=== PATIENT | male | born 1935 | race African-American/Black ===

== ENCOUNTER 2016-05-28 01:47 | Inpatient (IN) | payer MEDICARE ==
[~2016-05-28] VITALS: Ht 177.8 cm; Wt 58.6 kg
[~2016-05-28 01:47] MED LIST: ACETAMINOPHEN325 MG PO; ADVAIR HFA [SP]12 GM INH; ALLEGRA 60 MG T60 MG PO; ARICEPT5 MG PO; ARTIFICIAL TEAR15 ML EACH EYE; ASPIRIN81 MG PO; ATARAX 25 MG TA25 MG PO; ATIVAN0.5 MG PO; ATROVENT 0.02%2.5 ML UPD; BACTROBAN NASAL1 GM NASAL; BACTROBAN NASAL1 GM NS; BAYER CHEWABLE81 MG PO; BUPRENORPHI0.3 MG/ML IM; CARAFATE1 G PO; CILOXAN5 ML EACH EYE; CLARITIN 10 MG10 MG PO; COLACE100 MG PO; COUMADIN2.5 MG PO; COUMADIN5 MG PO; COUMADIN7.5 MG PO; DULCOLAX5 MG PO; FOLIC ACID1 MG PO; HEPARIN SOD5000 U/ML IV; HYDRALAZINE HCL25 MG PO; IMDUR30 MG PO; ISOSORBIDE MONO30 M1 PO; LEVAQUIN250 MG PO; LEVAQUIN500 MG PO; LIPITOR10 MG; LIPITOR10 MG PO; LIPITOR20 MG PO; LISINOPRIL10 MG PO; MEGACE40 MG NG; MEGACE40 MG PO; MIRALAX17 GM PO; NEPHRO-VITE RX1 TAB PO; NITROQUICK0.4 MG SL; NITROSTAT0.3 MG SL; NITROSTAT0.4 MG SL; NORCO 5/325 TAB1 TA1 PO; NORCO 7.5/325 T1 TA1 PO; NORVASC10 MG PO; NYSTATIN ORAL SU5 ML PO; OMEPRAZOLE20 M1 PO; PEPCID AC20 MG PO; PEPCID20 MG PO; PERCOCET 10/3251 TA1 PO; PERCOCET 5-3251 TAB PO; PHENERGAN25 MG/ML IV; PHOSLO667 MG PO; PLAVIX75 MG PO; PREMARIN0.3 MG PO; PROTONIX40 MG PO; REMERON15 MG PO; RENA-VITE TABL0.8 MG PO; RESTORIL15 MG PO; ROCALTROL0.25 MCG PO; SENNA PLUS TA1 UDTAB PO; SODIUM BICARBO650 MG PO; SODIUM CL 0.91000 ML IVPB; SORBITOL4000 ML PO; SYMBICORT 16010.2 GM INH; SYNTHROID75 MCG PO; TOPROL XL100 MG PO; TOPROL XL50 MG PO; ULTRAM50 MG PO; VANCOMYCIN H1 G/VIA1 IV; VIBRAMYCIN50 MG PO; VISINE15 ML EACH EYE; ZESTRIL20 MG PO; ZOFRAN4 MG PO; ZOLOFT50 MG PO; [UNRECOGNIZED DRUG - OTHER] IV
[2016-05-28 02:22] LABS: BASOPHILS 0.1 % (0.0-2.0); HEMATOCRIT 35.1 % (42.0-54.0); HEMOGLOBIN 11.3 g/dL (13.5-17.5); IMMATURE GRANULOCYTES 0.3 % (0-5); LYMPHOCYTES 12.6 % (15-50); MCH 30.7 pg (26.0-34.0); MCHC 32.2 g/dL (31.0-37.0); MCV 95.4 fL (80.0-100.0); MEAN PLATELET VOLUME 11.2 fL (7.4-10.4); MONOCYTES 12.4 % (2-11); NEUTROPHILS 71.6 % (40-80); RBC 3.68 10x6/uL (4.20-6.10); RDW 14.1 % (11.5-14.5); WBC 7.3 10x3/uL (4.8-10.8)
[2016-05-28 02:23] LABS: PLATELET COUNT 234 10x3/uL (130-400)
[2016-05-28 02:25] LABS: ALBUMIN 3.8 g/dL (3.4-5.0); ALKALINE PHOSPHATASE 76 U/L (46-116); ALT (SGPT) 14 U/L (10-68); BILIRUBIN - TOTAL 0.39 mg/dL (0.2-1.3); CALC OSMOLALITY 288 mosm/kg (275-300); CALCIUM 8.9 mg/dL (8.5-10.1); CARBON DIOXIDE 27.8 mmol/L (21.0-32.0); CHLORIDE - SERUM 101 mmol/L (98-107); CREATININE - SERUM 8.5 mg/dL (0.6-1.3); GLUCOSE 102 mg/dL (74-106); POTASSIUM - SERUM 5.6 mmol/L (3.5-5.1); PROTEIN - SERUM 8.8 g/dL (6.4-8.2); SODIUM 139 mmol/L (136-145); UREA NITROGEN 42 mg/dL (7-18); eGFR NON AFRICAN AMERICAN 6 mL/min (90-120)
[2016-05-28 02:37] LABS: CHOLESTEROL, TOTAL 172 mg/dL (0-200); CKMB 1.5 U/L (0.0-3.6); CREATINE KINASE 49 UL (21-232); HDL CHOLESTEROL 58 mg/dL (32-96); LDL CHOLESTEROL 92 mg/dL (0-100); LDL-HDL RATIO 1.6 ratio (1.5-3.5); TRIGLYCERIDE 113 mg/dL (30-200); TROPONIN-I 0.035 ng/mL (0.000-0.060)
[2016-05-28 05:04] LABS: CKMB 2.5 U/L (0.0-3.6); CREATINE KINASE 233 UL (21-232)
--- NOTE | 2016-05-28 05:19 | NUR ---
RECEIVED TO ROOM 2864 ALERT AND ORIENTED X 3. FROM ER VIA STRETCHER, ASSIST TO BED WITH HELP OF THREE. GUALBERTO WELL. HOB UP SR UP X2, C/L IN REACH. CONTINUE TO MONITOR.
--- NOTE | 2016-05-28 07:25 | NUR ---
PT SITTING UP IN BED SLEEPING NO S/S DISTRESS WILL CONT TO MONITOR
[2016-05-28 08:13] VITALS: BP 152/62
[2016-05-28] MEDS ORDERED: COMBIVENT RESPIM4 GM INH (09:36)
--- NOTE | 2016-05-28 09:37 | NUR ---
DR FLANNERY PUT IN ORDER TO CONT [place] MEDS AT [place]. ORDERED. PT WILL HAVE DIALYSIS TODAY HOLDING BP MEDS FOR NOW. PT IS A FULL CODE. TELE ON PT SR 70 BPM. LABS ORDERED FOR TOMORROW AM PT REQUESTING HIS INHALER HE TAKES AT HOME. IS HOME MED, REORDERED AND CALLED PHARM TO BRING IT UP.
[2016-05-28 09:58] VITALS: BMI 20.9
[2016-05-28 12:04] VITALS: BP 158/59
--- NOTE | 2016-05-28 12:29 | NUR ---
PT SITTING UP IN BED WATCHING TV. DENIES NEEDS WILL CONT TO MONITOR.
[2016-05-28 12:39] LABS: CKMB 1.1 U/L (0.0-3.6); CREATINE KINASE 36 UL (21-232); TROPONIN-I 0.032 ng/mL (0.000-0.060)
[2016-05-28 14:09] VITALS: Ht 177.8 cm; Wt 58.6 kg
--- NOTE | 2016-05-28 18:04 | NUR ---
PT DOWN IN DIALYSIS
[2016-05-28 20:00] VITALS: BP 234/90
--- NOTE | 2016-05-28 21:01 | NUR ---
PT RECEIVED BACK FROM DIALYSIS.
--- NOTE | 2016-05-28 21:57 | NUR ---
PT AWAKE, ALERT, ORIENTED, STATES HE DID FINE WITH DIALYSIS THIS EVENING. PT DENIES ANY ACUTE NEEDS. CONTINUE TO MONITOR CLOSELY. BED LOW, CALL LIGHT IN REACH, SIDE RAILS X 2, HOB 20 DEGREES.
--- NOTE | 2016-05-28 23:52 | NUR ---
PT READY FOR SLEEP AT THIS TIME. DENIES ANY ACUTE NEEDS. PT STATES HIS GENERALIZED PAIN HAS IMPROVED WITH THE PRN TRAMADOL AND TYLENOL. CONTINUE TO MONITOR CLOSELY. BED LOW, CALL LIGHT IN REACH, SIDE RAILS X 2, HOB 10 DEGREES.
--- NOTE | 2016-05-29 00:56 | NUR ---
PT LYING IN BED, EYES CLOSED, RESPIRATIONS EVEN AND UNLABORED. PT EASILY ROUSABLE TO VERBAL STIMULI. PT DENIES ANY NEEDS. CONTINUE TO MONITOR CLOSELY. BED LOW, CALL LIGHT IN REACH, SIDE RAILS X 2, HOB 10 DEGREES.
[2016-05-29 04:15] VITALS: BP 110/49; BP 168/62
[2016-05-29 05:53] LABS: BASOPHILS 0.3 % (0.0-2.0); EOSINOPHILS 3.6 % (0-7); HEMATOCRIT 31.7 % (42.0-54.0); HEMOGLOBIN 9.9 g/dL (13.5-17.5); IMMATURE GRANULOCYTES 0.3 % (0-5); LYMPHOCYTES 14.2 % (15-50); MCH 29.8 pg (26.0-34.0); MCHC 31.2 g/dL (31.0-37.0); MCV 95.5 fL (80.0-100.0); MEAN PLATELET VOLUME 10.9 fL (7.4-10.4); NEUTROPHILS 67.6 % (40-80); PLATELET COUNT 216 10x3/uL (130-400); RBC 3.32 10x6/uL (4.20-6.10); RDW 13.9 % (11.5-14.5); WBC 5.8 10x3/uL (4.8-10.8)
[2016-05-29 06:38] LABS: CALCIUM 8.2 mg/dL (8.5-10.1); CARBON DIOXIDE 29.3 mmol/L (21.0-32.0); CHLORIDE - SERUM 99 mmol/L (98-107); CKMB 1.3 U/L (0.0-3.6); CREATINE KINASE 37 UL (21-232); CREATININE - SERUM 7.1 mg/dL (0.6-1.3); GLUCOSE 77 mg/dL (74-106); PHOSPHOROUS 4.3 mg/dL (2.5-4.9); SODIUM 136 mmol/L (136-145); eGFR NON AFRICAN AMERICAN 8 mL/min (90-120)
[2016-05-29 06:41] LABS: CALC OSMOLALITY 276 mosm/kg (275-300); POTASSIUM - SERUM 4.6 mmol/L (3.5-5.1); UREA NITROGEN 30 mg/dL (7-18)
--- NOTE | 2016-05-29 07:15 | NUR ---
RECEIVED REPORT. ASSUMED CARE OF PATIENT. CALL LIGHT WITHIN REACH. RESTING WITH EYES CLOSED. RESP EVEN AND UNLABORD. NO DISTRESS.
[2016-05-29 08:27] VITALS: BP 157/72
--- NOTE | 2016-05-29 11:00 | NUR ---
PATIENT RESTING IN BED. DENIES NEEDS. DAUGHTER AT BEDSIDE. CALL LIGHT WITHIN REACH. NO DISTRESS.
[2016-05-29 12:02] VITALS: BP 124/64
--- NOTE | 2016-05-29 13:31 | NUR ---
RESTING IN BED WITH EYES OPEN. CALL LIGHT WITHIN REACH. DENIES NEEDS AT THIS TIME. NO DISTRESS.
--- NOTE | 2016-05-29 14:38 | NUR ---
PATIENT PATHWAYS: [facility] @ 6am. [facility] recs uploaded and forwarded to the OPHD unit. BMM Dialysis Coordinator.
--- NOTE | 2016-05-29 16:13 | NUR ---
MEDICATED FOR ANXIETY AT THIS TIME. NO DISTRESS.
[2016-05-29 16:15] LABS: SPE - A/G RATIO 0.9 (0.7-1.7); SPE - ALPHA-1 GLOBULIN 0.3 g/dL (0.0-0.4); SPE - ALPHA-2 GLOBULIN 0.7 g/dL (0.4-1.0); SPE - GAMMA GLOBULIN 2.3 g/dL (0.4-1.8); SPE - M-SPIKE 1.5 g/dL (Not Observed); SPE - TOTAL PROTEIN 8.3 g/dL (6.0-8.5)
[2016-05-29 16:38] VITALS: BP 148/59
--- NOTE | 2016-05-29 19:54 | NUR ---
PT LYING IN BED, COVERS PULLED OVER HIS HEAD RESTING. PT IS EASILY ROUSABLE TO VERBAL STIMULI. DENIES ANY NEEDS. WILL CONTINUE TO MONITOR CLOSELY.
[2016-05-29 21:06] VITALS: BP 162/61
[2016-05-30 01:50] VITALS: BP 150/61
[2016-05-30 05:40] VITALS: BP 132/60
[2016-05-30 06:25] LABS: ANION GAP 12.6 mmol/L (8-16); CALCIUM 8.6 mg/dL (8.5-10.1); CARBON DIOXIDE 29.2 mmol/L (21.0-32.0)
[2016-05-30 06:29] LABS: CREATININE - SERUM 9.3 mg/dL (0.6-1.3); POTASSIUM - SERUM 5.8 mmol/L (3.5-5.1)
[2016-05-30 08:03] VITALS: BP 168/63
--- NOTE | 2016-05-30 10:40 | NUR ---
PT IS ALERT. ASSESSMENT DONE PER FLOWSHEET. NO OTHER NEEDS AT THIS TIME. WILL CONTINUE TO MONTIOR.
--- NOTE | 2016-05-30 11:26 | NUR ---
PT IS ALERT. NO SS OF DISTRESS. PT IN HD AT THIS TIME. CALLED [facility]IR TO GIVE REPORT. PT IS STABLE AT THIS TIME.
[2016-05-30 16:00] VITALS: BP 193/71
--- NOTE | 2016-05-30 20:09 | NUR ---
HS MEDS GIVEN, ULTRAM 1 TAB GIVEN FOR C/O PAIN TO BACK. BED LOW, CL IN REACH, WILL CONT TO MONITOR.
[2016-05-30 22:07] VITALS: BP 157/62
--- NOTE | 2016-05-30 23:38 | NUR ---
RESTING WITH EYES CLOSED, RESPERATIONS EVEN, NO S/S DISTRESS NOTED.
[2016-05-31 01:57] VITALS: BP 139/59
[2016-05-31 05:26] VITALS: BP 140/62
--- NOTE | 2016-05-31 06:28 | NUR ---
NO CHANGES FROM PREVIOUS ASSESSMENT, CALL LIGHT IN REACH. WILL CONTINUE TO WITH PLAN OF CARE.
[2016-05-31 06:42] LABS: ANION GAP 13.7 mmol/L (8-16); CALCIUM 8.5 mg/dL (8.5-10.1); CARBON DIOXIDE 30.3 mmol/L (21.0-32.0); CREATININE - SERUM 8.1 mg/dL (0.6-1.3); PHOSPHOROUS 4.3 mg/dL (2.5-4.9)
--- NOTE | 2016-05-31 07:30 | NUR ---
PT IS ALERT. WILL CONTINUE PLAN OF CARE. NO OTHER NEEDS AT THIS TIME. WILL CONTINUE TO [facility].
--- NOTE | 2016-05-31 07:30 | NUR ---
PT IS ALERT. RECEIVED PT REPORT. NO OTHER NEEDS AT THIS TIME. WILL CONTINUE PLAN OF CARE
[2016-05-31 08:19] VITALS: BP 151/64
--- NOTE | 2016-05-31 11:30 | NUR ---
Patient Name: BRITTON HEATH Admission Status: ER Accout number: [id number] Admission Date: 05-29-2016 : 1935 Admission Diagnosis: Attending: ALLEN Current LOS: 2 Anticipated DC Date: 06-01-2016 Planned Disposition: Nursing Facility [facility] Cert Primary Insurance: MEDICARE A & B PLANNED EXTERNAL PROVIDER: [facility], LONG TERM CARE MEDICAID BED Discharge Planning Comments: * Is the patient Alert and Oriented? Yes 0 * How many steps to enter\exit or inside your home? NONE 0 * PCP DR. COULTER 0 * Pharmacy [facility] 0 * Preadmission Environment [facility] 0 * Facility Name [facility] 0 * ADLs Partial Dependent 0 * Partial ADLs (Assistance needed) Bathing Medication Management 0 * Equipment Other 0 * Other Equipment ALL MEDICAL EQUIPMENT PROVIDED BY FACILITY 0 * List name and contact numbers for known caregivers / representatives who currently or will assist patient after discharge: UNIQUE HEATH, SON, 0 * Community resources currently utilized Other 0 * Please name any agencies selected above. OUTPATIENT DIALYSIS, [facility], M/W/F, 0645AM 0 * Additional services required to return to the preadmission environment? No 0 * Can the patient safely return to the preadmission environment? Yes 0 * Has this patient been hospitalized within the prior 30 days at any hospital? No 0 CM RECEIVED DISCHARGE PLANNING ORDER, MET WITH PT IN ROOM TO DISCUSS DISCHARGE PLANNING FOR TOMORROW AND NEEDS. PT REPORTS LIVING AT [facility] IN [place]. PT REPORTS HAVING ASSISTANCE OF STAFF THERE NEEDED. PT REPORTS HAVING ALL NEEDED MEDICAL EQUIPMENT. PT REPORTS HE WILL BE RETURNING TO THE [facility] WHERE HE LIVES, THE FACILITY [facility] TRANSPORTS HIM TO AND FROM DIALYSIS. PT WOULD LIKE CM TO CALL HIS SON UNIQUE TOMORROW, WHEN HE GOES HOME TO [facility]. CM FAXED [facility] FOR [facility], AN UPDATE TO [phone]. FOR DISCHARGE, NOTIFY PT'S SON, UNIQUE, . FAX DISCHARGE INFORMATION TO [facility] AT [phone]; NURSE REPORT TO BE CALLED TO [facility] AT [phone]. [facility] TO ARRANGE VAN TRANSPORTATION. Serologist: Oswaldo Chong
--- NOTE | 2016-05-31 12:00 | NUR ---
PT IS ALERT. ASSESSMENT DONE PER FLOWSHEET. NO OTHER NEEDS AT THIS TIME. WILL CONTINUE TO MONITOR.
[2016-05-31 12:20] VITALS: BP 137/54
--- NOTE | 2016-05-31 12:38 | NUR ---
Nutrition Follow Up: Pt reported that his appetite is okay. He said that he eats more at some meals than others. Noted pt to d/c tomorrow after HD. Pt is eating 25% meal avg on a Renal diet. Wt loss 17# since admit. +BM 05/30/16. Labs noted - BUN, Cr elevated. Meds noted. Pt with poor po intake. Rec continue current diet. Will continue to send selective menus and honor food preferences within diet ordered. RD following.
--- NOTE | 2016-05-31 15:38 | NUR ---
PT IS ALERT. NO SS OF DISTRES AT THIS TIME. WILL CONTINUE TO MONITOR.
[2016-05-31 16:17] VITALS: BP 140/66
--- NOTE | 2016-05-31 19:35 | NUR ---
RESUMED CARE OF PT, SLEEPING, RSUSANNAH-ADELA, MEEF,[id number], BED IS LOW, SRX2, CALL LIGHT IN REACH, WILL CONTINUE TO MONITOR
[2016-05-31 20:00] VITALS: BP 163/64
[2016-06-01] VITALS: BP 164/71
--- NOTE | 2016-06-01 03:37 | NUR ---
ESCROW ASSISTANT AT BEDSIDE TO OBTAIN VITALS, CALL LIGHT IN REACH. WILL CONTINUE WITH PLAN OF CARE.
[2016-06-01 04:00] VITALS: BP 169/70
--- NOTE | 2016-06-01 05:25 | NUR ---
PT SLEEPING, CALL LIGHT IN REACH, BED IS LOW, SRX2, WILL CONTINUE TO MONITOR
[2016-06-01 06:05] LABS: BASOPHILS 0.2 % (0.0-2.0); EOSINOPHILS 2.7 % (0-7); IMMATURE GRANULOCYTES 0.3 % (0-5); LYMPHOCYTES 15.6 % (15-50); MCH 30.5 pg (26.0-34.0); MCHC 32.4 g/dL (31.0-37.0); MCV 94.2 fL (80.0-100.0); MEAN PLATELET VOLUME 11.4 fL (7.4-10.4); MONOCYTES 13.2 % (2-11); PLATELET COUNT 223 10x3/uL (130-400); RBC 3.61 10x6/uL (4.20-6.10); RDW 13.7 % (11.5-14.5); WBC 6.6 10x3/uL (4.8-10.8)
[2016-06-01 07:13] LABS: ANION GAP 14.5 mmol/L (8-16); CALCIUM 8.4 mg/dL (8.5-10.1); CARBON DIOXIDE 27.5 mmol/L (21.0-32.0); PHOSPHOROUS 4.2 mg/dL (2.5-4.9)
[2016-06-01 07:15] LABS: CREATININE - SERUM 10.6 mg/dL (0.6-1.3)
--- NOTE | 2016-06-01 07:58 | NUR ---
AM ROUNDING DONE WITH NIGHT NURSE. PATIENT IS SLEEPING, RIGHT HAND SEEN WITH SALINE LOCK. RESEV. LEFT ARM WITH AVF. ON HEART MONITOR SHOWING SR, HR 64. BED ALARM IS ON. FOR DIALYSIS TODAY.
--- NOTE | 2016-06-01 09:17 | NUR ---
0901-TO DIALYSIS VIA WHEELCHAIR.
[2016-06-01 09:52] VITALS: BP 168/67
--- NOTE | 2016-06-01 10:52 | NUR ---
PATIENT PATHWAYS: [facility] Sat/Sat/Sat @ 6:00am. Med recs forwarded to unit. BMM Dialysis Coordinator.
[2016-06-01] MEDS ORDERED: Levaquin PO (11:28)
[2016-06-01] MEDS ORDERED: ISOSORBIDE DINI10 MG PO (11:29)
[2016-06-01] MEDS ORDERED: HYDRALAZINE HCL50 MG PO (11:29)
[2016-06-01] MEDS ORDERED: RENVELA0.8 GM PO (11:41)
[2016-06-01] MEDS ORDERED: FLORAJEN3 CAPS460 MG PO (11:41)
--- NOTE | 2016-06-01 12:52 | NUR ---
Patient Name: BRITTON HEATH Encounter No: [id number] : 1935 Primary Insurance: MEDICARE A & B Anticipated DC Date: 06-01-2016 Planned Disposition: Nursing Facility [facility] Cert External Planned Provider: [facility] LONG TERM CARE MEDICAID BED DCP follow-up note: CM RECEIVED DISCHARGE ORDER, CALLED AND NOTIFIED PT'S SON, UNIQUE, . CM FAXED DISCHARGE INFORMATION TO [facility] AT [phone]. NURSE REPORT TO BE CALLED TO [facility] AT [phone]. [facility] TO ARRANGE VAN TRANSPORTATION FOR AFTER 2PM TODAY. Inspector Packer Glass Container: Oswaldo Chong
--- NOTE | 2016-06-01 12:54 | NUR ---
RETURNS FROM DIALYSIS, RATES "ALL OVER PAIN" 01/01. ULTRAM GIVEN ORDERED.
--- NOTE | 2016-06-01 14:47 | NUR ---
CALL PLACED TO JESSICA HORTA APN WITH RE[facility] TO SEE HOW MANY DAYS OF LEVAQUIN NEEDS TO BE GIVEN. AWAITING CALL BACK.
--- NOTE | 2016-06-01 14:51 | NUR ---
STILL AWAITING CALL BACK FROM JESSICA HORTA APN. PAGED AGAIN.
--- NOTE | 2016-06-01 14:59 | NUR ---
JESSICA HORTA APN TO CALL BACK AND STATE THAT HE NEEDS 5 DAYS OF LEVAWUIN.
--- NOTE | 2016-06-01 15:03 | NUR ---
REPORT CALLED TO JESSA CADET AT [facility].
--- NOTE | 2016-06-01 17:05 | NUR ---
SALINE LOCK REMOVED WITH CATH TIP INTACT. VERBAL AND WRITTEN DISCHARGE INSTRUCTIONS GIVEN TO PATIENT. DISCHARGED TO [facility] VIA WHEELCHAIR.
[2016-06-01 21:07] LABS: IMMUNOFIXATION Note: (()); IMMUNOGLOBULIN A 100 mg/dL (61-437); IMMUNOGLOBULIN G 2106 mg/dL (700-1600); IMMUNOGLOBULIN M 31 mg/dL (15-143)
--- NOTE | 2016-06-04 06:34 | DS ---
PATIENT:BRITTON HEATH :[birth year] MEDICAL RECORD: [id number] DISCHARGE SUMMARY ADMISSION DATE: 05/29/16 DISCHARGE DATE: 06/01/16 HISTORY OF PRESENT ILLNESS: Mr. Heath is a 80-year-old black male with end-stage renal disease, admitted from the [place] [facility] with shortness of breath and pleuritic chest pain, found to have pneumonia in the [place] [facility] and transferred for antibiotic therapy. HOSPITAL COURSE: The patient received IV followed by oral Levaquin therapy and did well with this. He was dialyzed down the past ____ and had no further his pleuritic chest pain. There was no change in his cardiac enzymes or telemetry strips. He was back to baseline at the time of discharge and tolerating oral medications well. He underwent acute dialysis without difficulty and will be transferred back to the [place] [facility] in [place]. DISCHARGE DIAGNOSES: 1. Pneumonia. 2. Noncardiac chest pain. 3. End-stage renal disease. 4. Dementia. 5. Chronic obstructive pulmonary disease. 6. Chronic anemia. PLAN: The patient will be dialyzed today and then transferred back to the [place] [facility]. He will resume his outpatient dialysis on Saturday in [place]. He will resume his renal diet, ambulation as tolerated. DISCHARGE MEDICATIONS: Will be Levaquin 250 daily for a total of 5 days. He will resume Epogen in the dialysis unit, Zestril 20 b.i.d., hydralazine 50 b.i.d., isosorbide 20 mg daily, Synthroid 75 mcg daily, Protonix 40 mg daily, Zoloft 25 q.48. He will resume his p.r.n. medications laxatives, etc., metoprolol 50 t.i.d. His Premarin 0.3 daily for his chronic AV ____, GI bleeding, amlodipine 10 mg h.s., atorvastatin 20 h.s. and his Aricept 5 mg h.s. and his Renvela 800 t.i.d., baby aspirin 1 daily, Nephro-Felecia 1 daily. TRANSINT:[id number] Voice Confirmation ID: [id number] DOCUMENT ID: [id number] TYE FLANNERY MD at 0634 CC: [id number] DICTATION DATE: 06/01/16803 SUSTAINABILITY OFFICER: 06/01/162299 DIS IN 06/01/16 [facility] [address] [facility] [place], [facility]
--- NOTE | 2016-06-12 08:17 | EC ---
PATIENT:BRITTON HEATH DATE OF SERVICE: 05/28/16 SEX: M MEDICAL RECORD: [id number] DATE OF : [birth year] LOCATION:D.M2 D.213 AGE OF PATIENT: 80 ADMISSION DATE: 05/29/16 REFERRING PHYSICIAN: INTERPRETING PHYSICIAN: JOSE MAHARAJ M.D. ECHOCARDIOGRAM REPORT ECHO CHARGES 4 ECHO COMPLETE CLINICAL DIAGNOSIS: SOB ECHOCARDIOGRAPHIC MEASUREMENTS (adult normal given) AC root (d.<3.7cm) 3.0 LV Septum d (<1.2 cm> 1.3 Valve Excursion 1.5 LV Septum (systole) 1.8 Left Atria (s.<4.0cm> 3.5 LVPW d(<1.2cm) 1.3 RV (d.<2.3cm) 2.7 LVPW (sytole) 2.1 LV diastole(<5.6CM) 6.1 MV E-F(>70mm/sec) LV systole 3.9 LVOT Diameter 1.7 MV exc.(>10mm) Est.ejection fraction (50-75%) Pericardial Effusion N DOPPLER: LVIT A 74.0 E 146 LA RVSP 70.3 LVOT 114 AOP1/2T Asc. Ao 169 RVOT 51.0 RA PA 81.0 AV Gradient Peak 12.0 AV Mean 5.6 AV Area 1.3 MV Gradient Peak 9.3 MV Mean 2.4 MV Area COMMENTS: Knot Bumper: Sanjana SHINOE Roller Engraver:Joce Maharaj TAPE# PACS DATE OF SERVICE: 05/28/2016 REFERRING PHYSICIAN: Cliff Porter MD. INDICATION: Dyspnea. DESCRIPTION: Left ventricle is mildly dilated. Left ventricular hypertrophy is present. No wall motion abnormalities are noted. Estimated ejection fraction is 55%. Mitral valve appears structurally normal. There is mild regurgitation seen. Left atrium is normal in size. The aortic valve leaflets are thickened. ECHOCARDIOGRAM REPORT [id number] BRITTON HEATH There is mild insufficiency seen, but no evidence of stenosis. Right ventricle is mildly dilated. Tricuspid valve is structurally normal. There is mild regurgitation seen. Right ventricular systolic pressure is elevated 70 mmHg. There is no pericardial effusion seen. There appears to be a small ASD seen by color flow Doppler. There appears to be [id number]-qr-[id number] shunting. IMPRESSION: 1. Mildly dilated left ventricle with preserved ejection fraction of 55%. 2. Mild mitral regurgitation. 3. Mild aortic insufficiency. 4. Mild tricuspid regurgitation with elevated pulmonary pressure. 5. Small atrial septal defect is seen by color flow Doppler. TRANSINT:[id number] Voice Confirmation ID: [id number] DOCUMENT ID: [id number] JOSE MAHARAJ M.D. at 0817 CC: [id number] DICTATION DATE: 05/29/16 0745 HEDDLER TIER: 05/29/16 0819 DIS IN 06/01/16 [address] [id number] [place] [address]
== END 2016-06-01 17:12 | DRG 190 ==
LOC: D.ER 01:47 → D.M2 04:12 → OBSVTIME 04:12 → D.M2 05-29 16:14
PROVIDERS: Family Medicine; Internal Medicine Nephrology; ADMIT Internal Medicine Nephrology
PROC: 5A1D60Z (ICD-10-PCS; principal; 2016-05-28)
DX: J44.0 Chronic obstructive pulmonary disease with (acute) lower respiratory infection (principal); J18.9 Pneumonia, unspecified organism; N18.6 End stage renal disease; I12.0 Hypertensive chronic kidney disease with stage 5 chronic kidney disease or end stage renal disease; Z66 Do not resuscitate; E11.22 Type 2 diabetes mellitus with diabetic chronic kidney disease; Z99.2 Dependence on renal dialysis; E11.40 Type 2 diabetes mellitus with diabetic neuropathy, unspecified; D63.1 Anemia in chronic kidney disease; F03.90 Unspecified dementia, unspecified severity, without behavioral disturbance, psychotic disturbance, mood disturbance, and anxiety; I25.10 Atherosclerotic heart disease of native coronary artery without angina pectoris; G89.29 Other chronic pain; Z95.5 Presence of coronary angioplasty implant and graft

== ENCOUNTER 2017-01-13 06:58 | Inpatient (IN) | payer MEDICARE ==
[2017-01-13] VITALS (10 sets, daily range): BP systolic 125–171; BP diastolic 45–68; BMI 16.5
--- NOTE | ~2017-01-13 | HEMODYNAMI ---
PATIENT:BRITTON HEATH MEDICAL RECORD: [id number] : 37 LOCATION:[address] ADMISSION DATE: 01/13/17 Generatedon:01/14/20179:42 Patient name: BRITTON HEATH Patient #: [id number] SSN: DO B: 1935 Date of study: 01/14/2017 Page: Of Hemodynamic Procedure Report Patient Data Patient Demographics Procedure consent was obtained First Name: BRITTON Gender: Male Last Name: IVANA Suffix: Patient #: [id number] : 1935 Age: 81 year(s) Accession #: Race: Black [id number] Additional ID: [id number] Contact details Address: [address] [place] [address] ROAD State: [place] City: [place] Zip code: [address] Past Medical History History of disease Date Diagnosis Comments 03/12/2014 CAD Admission Admission Data Admission Date: 01/13/2017 Admission Time: 9:05 Room #: 2125 Lab Results Lab Result Date: 01/14/2017 Lab Result Time: 0:00 Biochemistry Name Units Result Min Max BUN mg/dl 30 --(----)-* 7 18 Creatinine mg/dl 7.6 --(----)-* 0.6 1.3 CBC Name Units Result Min Max Hemoglobin g/dl 10.1 *-(----)-- 13.5 17.5 Procedure Procedure Types Cath Procedure Diagnostic Procedure C [facility] w/Coronaries Miscellaneous Procedures Moderate Sedation up to 15 minutes Procedure Description Procedure Date Procedure Date: 01/14/2017 Procedure Start Time: 9:21 Procedure End Time: 9:41 Procedure Staff Name Function Ben Waggoner MD Performing Physician Yuko Becerra RN Nurse Leeann Chaparro RT Monitor Evert Webster RT Monitor Ana Rosa Patel RT Scrub Procedure Data Cath Procedure Fluoroscopy Diagnostic fluoroscopy Total fluoroscopy Time: 4.4 time: 4.4 min min Diagnostic fluoroscopy Total fluoroscopy dose: 278 dose: 278 mGy mGy Contrast Material Contrast Material Type Amount (ml) Isovue 370 0 Isovue 370 0 Isovue 300 53 Entry Location Entry Primary Successful Side Size Upsize Upsize Entry Closure Succes sful Closure Location (Fr) 1 (Fr) 2 (Fr) Remarks Device Remarks Femoral Right 5 Fr Exoseal artery Estimated blood loss: 5 ml Diagnostic catheters Device Type Used For End Catheter Placement Cordis 5Fr 3DRC Catheter Procedure (MP) Cordis 5Fr JL 4.0 Procedure Catheter (MP) Cordis 5Fr Pigtail Procedure Catheter (MP) Procedure Complications No complications Procedure Medications Medication Administration Route Dosage Lidocaine 2% added to field 20 Heparin Flush Bag added to field 2 bags (1000units/500ml NS) Oxygen NC 3 l/min 0.9% NaCl I.V. 100 ml/hr Versed I.V. 1 mg Fentanyl I.V. 50 mcg Hemodynamics Rest HGB: 10.1 (g/dl) Heart Rate: 73 (bpm) Pressure Samples Time Site Value (mmHg) Purpose Heart Use Rate(bpm) 9:35 LV 161/6,11 Snapshot 74 Gradients Valve Time Site Site Mean SEP/DFP Peak To Heart Use 1 2 (mmHg) (sec/min) Peak Rate (mmHg) (bpm) Aortic 9:35 LV AO 74 Snapshots Pre Cath Intra NCS Post Cath Vital Signs Time Heart Resp SPO2 etCO2 NIBP (mmHg) Rhythm Pain Sedation Rate (ipm) (%) (mmHg) Status Level (bpm) 8:57:58 72 16 97 0 200/79(152) NSR 0 (11) 10(A) , No pain 9:02:49 67 15 100 0 171/68(127) NSR 0 (11) 10(A) , No pain 9:07:38 69 16 100 0 168/71(139) NSR 0 (11) 10(A) , No pain 9:12:22 69 17 99 0 145/68(128) NSR 0 (11) 10(A) , No pain 9:17:05 71 17 98 0 151/68(117) NSR 0 (11) 10(A) , No pain 9:21:49 72 17 99 0 129/61(114) NSR 0 (11) 9(A) , No pain 9:26:28 74 16 100 0 131/63(116) NSR 0 (11) 9(A) , No pain 9:31:05 75 18 100 0 147/74(112) NSR 0 (11) 9(A) , No pain 9:35:48 75 18 100 0 144/68(106) NSR 0 (11) 9(A) , No pain 9:40:24 74 18 100 0 160/71(117) NSR 0 (11) 10(A) , No pain Medications Time Medication Route Dose Verified Delivered Reason Notes Effec tiveness by by 9:00:13 Lidocaine 2% added 20ml Yuko Yuko used for to vial Mariam Mariam procedure field RN RN 9:00:23 Heparin Flush added 2 Yuko Yuko used for Bag to bags Mariam Mariam procedure (1000units/500ml field RN RN NS) 9:00:31 Oxygen NC 3 Yuko Yuko used for l/min Mariam Mariam welding specialist RN 9:00:43 0.9% NaCl I.V. 100 Yuko Yuko used for ml/hr Mraiam Mariam welding specialist RN 9:16:52 Versed I.V. 1 mg Yuko Yuko for Mariam Mariam sedation RN RN 9:16:59 Fentanyl I.V. 50 Yuko Yuko for mcg Mariam Mariam sedation RN manufacturing engineering technician Log Time Note 8:24:19 Evert DOTY(R) sent for patient. Start room use. 8:24:28 Time tracking: Regular hours 8:24:33 Plan of Care:Hemodynamics will remain stable., Cardiac rhythm will remain stable., Comfort level will be maintained., Respiratory function will remain adequate., Patient/ family verbilizes understanding of procedure., Procedure tolerated without complication., Recovers from procedure without complications.. 8:27:07 H&P Date Dictated: 01/13/2017 Within 30 days and on chart., H&P Addendum completed by physician on day of procedure. (MUST COMPLETE FOR ALL OUTPATIENTS). 8:28:18 Lab Result : BUN 30 mg/dl 8:28:18 Lab Result : Creatinine 7.6 mg/dl 8:28:18 Lab Result : Hemoglobin 10.1 g/dl 8:51:30 Patient received from Pre/Post Procedure Room to [facility] 1 Alert and oriented. Tansferred to table in Supine position. 8:51:31 Warm blankets applied, and petros hugger turned on for patient comfort. 8:51:32 Correct patient and procedure confirmed by team. 8:51:33 Signed procedure consent form obtained from patient. 8:56:15 Vital chart was started 8:56:26 Baseline sample Acquired. 8:56:32 Rhythm: sinus rhythm 8:56:34 Full Disclosure recording started 8:57:33 Pre-procedure instructions explained to patient. 8:57:38 Pre-op teaching completed and patient verbalized understanding. 8:57:41 Family in waiting room. 8:57:43 Family unavailable. 8:57:45 Patient NPO since Midnight. 8:57:54 Is the patient allergic to Iodine/contrast media? No. 8:58:01 Is patient on blood thinner?No 8:58:05 Patient diabetic? Yes. 8:58:43 If diabetic: On Metformin? Unknown 8:58:50 Previous problem with sedation/anesthesia? No ? 8:58:52 Snore? Yes 8:58:55 Sleep apnea? No 8:58:58 Deviated septum? No 8:59:00 Opens mouth fully? Yes 8:59:02 Sticks out tongue? Yes 8:59:08 Airway obstruction? Yes ASTHMA 8:59:12 Dentures? No ? 8:59:16 Pre procedure: right dorsailis pedis pulse 1+ Palpable, but thready & weak; easily obliterated 8:59:31 PT. HAS RESERVED LEFT ARM 8:59:37 Patient pain scale 0/10 ?. 8:59:53 IV patent on arrival in right wrist with 0.9% NaCl at O. 9:00:02 Lab results completed and on chart. 9:00:06 Right groin area was prepped with chlora-prep and draped in sterile fashion 9:00:07 Alarms reviewed by R. N. 9:00:09 Sharps counted by scrub and verified by R.N. 9:00:13 Lidocaine 2% 20ml vial added to field was administered by Yuko Becerra RN; used for procedure; 9:00:23 Heparin Flush Bag (1000units/500ml NS) 2 bags added to field was administered by Yuko Becerra RN; used for procedure; 9:00:31 Oxygen 3 l/min NC was administered by Yuko Becerra RN; used for procedure; 9:00:43 0.9% NaCl 100 ml/hr I.V. was administered by Yuko Becerra RN; used for procedure; 9:03:30 Physician paged 9:05:21 Use device set Femoral Dx 9:05:23 Tegaderm 4 x 4 opened to sterile field. 9:05:24 Acist Manifold opened to sterile field. 9:05:25 Acist Hand Control opened to sterile field. 9:05:25 Acist Syringe opened to sterile field. 9:05:26 Bag Decanter opened to sterile field. 9:05:27 Medline Cath Pack opened to sterile field. 9:05:28 Terumo 5Fr Grafton Sheath opened to sterile field. 9:05:28 St [place] 260cm J .035 wire opened to sterile field. 9:05:29 Diagnostic Infinity 5Fr Multipack catheter opened to sterile field. 9:10:31 Cook 18G 7cm Percutaneous Entry needle opened to sterile field. 9:16:22 Physician arrived 9::24 --------ALL STOP TIME OUT------ 9:16:24 Final Timeout: patient, procedure, and site verified with staff and physician. All members of the team are in agreement. 9:16:26 Right groin site verified by team. 9:16:30 Physical assessment completed. ASA score P 2 - A patient with mild systemic disease as per Ben Waggoner MD. 9:16:34 Sedation plan: IV Moderate Sedation Versed, Fentanyl 9:16:52 Versed 1 mg I.V. was administered by Yuko Becerra RN; for sedation; 9:16:59 Fentanyl 50 mcg I.V. was administered by Yuko Becerra RN; for sedation; 9:21:17 Procedure started. 9:21:32 Local anesthetic to right femoral artery with Lidocaine 2% by Ben Waggoner MD.INITIAL ACCESS ONLY 9:22:26 A 5 Fr sheath was inserted into the Right Femoral artery 9:26:16 Cook Bentson 260cm 0.035 guide wire opened to sterile field. 9:27:11 A Cordis 5Fr 3DRC Catheter (MP) was advanced over the wire and used for Procedure. 9:27:26 bentson wire used to advance catheter. 9:27:42 unable to advance catheter. glidewire advanced 9:27:57 Terumo ANGLE 260cm glide wire opened to sterile field. 9:29:57 RCA angiography performed. 9:30:17 Catheter exchanged over wire. 9:30:33 A Cordis 5Fr JL 4.0 Catheter (MP) was advanced over the wire and used for Procedure. 9:31:44 LCA angiography performed. 9:33:05 Catheter exchanged over wire. 9:34:26 A Cordis 5Fr Pigtail Catheter (MP) was advanced over the wire and used for Procedure. 9:34:38 LV gram done using JONES 9:35:26 EF : 50 % 9:35:42 LV hemodynamics recorded. 9:35:48 Injector settings: Ml/sec: 10, Volume: 20, 9:36:08 Catheter removed. 9:36:28 Cordis 5Fr Exoseal opened to sterile field. 9:36:44 Sheath removed intact; hemostasis achieved with Exoseal to the Right Femoral artery. 9:36:51 Procedure ended.(Physican Out) 9:37:17 Fluoroscopy time 04.40 minutes. 9:37:23 Flurop Dose total: 278 9:37:23 Fluoroscopy dose: 278 mGy 9:37:26 Contrast amount:Isovue 370 0ml. 9:37:26 Contrast amount:Isovue 370 0ml. 9:37:30 Contrast amount:Isovue 300 53ml. 9:37:32 Sharps counted by scrub and verified by R.N. 9:37:43 Post-op/insertion site Right Femoral artery dressed using a 4 x 4 and Tegaderm. 9:37:52 Post Procedure Pulses reassessed and unchanged 9:37:58 Post-procedure physical assessment completed. ASA score P 2 - A patient with mild systemic disease as per Ben Waggoner MD. 9:38:02 Post procedure rhythm: unchanged. 9:38:05 Estimated blood loss: 5 ml 9:38:08 Post procedure instruction explained to patient.Patient verbalizes understanding. 9:38:09 Patient needs reinforcement of post procedure teaching. 9:39:00 Procedure and supply charges have been captured, reviewed, submitted and are correct. 9:39:03 Procedure Complication : No complications 9:41:20 Vital chart was stopped 9:41:21 See physician's report for complete and final results. 9:41:25 Report given to Med II. 9:41:29 Patient transfered to Med II with Stretcher. 9:41:33 Procedure ended. 9:41:33 Full Disclosure recording stopped 9:41:47 End room use (Document Last) Device Usage Item Name Manufacture Quantity Catalog Hospital Part Current Minimal Lot# / Number Charge Number Stock Stock Serial# Code Tegaderm 4 x 3M 1 [id number] [id number] 290677 462750 5 4 Acist Acist 1 58227 364203 565045 771580 5 Manifold Medical Systems Inc Acist Hand Acist 1 90506 034584 239279 165296 5 Control Medical Systems Inc Acist Acist 1 17424 882087 390994 556285 20 Syringe Medical Systems Inc Bag Decanter Microtek 1 2002S 128487 87741 502938 5 Medical Inc. Medline Cath Cardinal 1 [id number] 104401 22906 357017 5 Pack Health Terumo 5Fr Terumo 1 [id number] 484370 302492 309034 [address] [place] 1 563448 700559 942150 067430 30 260cm J .035 wire Diagnostic Cardinal 1 ID2229 068504 57858 765204 30 Infinity 5Fr Health Multipack catheter Cook 18G 7cm Cook Medical 1 [id number] 269115 02140 525768 5 Percutaneous Entry needle Cook [place] [facility] 1 [id number] 845726 504881 125189 4 260cm 0.035 guide wire Cordis 5Fr Cardinal 1 063905 5 3DRC Health Catheter (MP) Terumo ANGLE Terumo 1 FW5260 670194 387211 309496 5 260cm glide wire Cordis 5Fr Cardinal 1 611305 5 JL 4.0 Health Catheter (MP) Cordis 5Fr Cardinal 1 517473 5 Pigtail Health Catheter (MP) Cordis 5Fr Cardinal 1 EX500 944222 451693 862415 10 Exoseal Health Signature Audit [place] Stage Time Signature Unsigned Intra-Procedure 01/14/2017 Leeann Chaparro 9:42:27 AM RT(R) Signatures Monitor : Leeann Chaparro Signature : RT Date : Time : Monitor : Evert Webster RT Signature : Date : Time : [place] [address] [place] [address]
[~2017-01-13 06:58] MED LIST changes: +COMBIVENT RESPIM4 GM INH; +FLORAJEN3 CAPS460 MG PO; +HYDRALAZINE HCL50 MG PO; +ISOSORBIDE DINI10 MG PO; +Levaquin PO; +RENVELA0.8 GM PO
[2017-01-13 07:35] LABS: HEMATOCRIT 31.9 % (42.0-54.0); HEMOGLOBIN 10.1 g/dL (13.5-17.5); MCH 29.5 pg (26.0-34.0); MCHC 31.7 g/dL (31.0-37.0); MCV 93.3 fL (80.0-100.0); MEAN PLATELET VOLUME 10.8 fL (7.4-10.4); RBC 3.42 10x6/uL (4.20-6.10); RDW 14.8 % (11.5-14.5); WBC 4.4 10x3/uL (4.8-10.8)
[2017-01-13 07:39] LABS: PLATELET COUNT 170 10x3/uL (130-400)
[2017-01-13 07:43] LABS: APTT 27.8 SECONDS (22.8-39.4); INR 1.1 (0.85-1.17); PROTIME 14.1 SECONDS (11.6-15.0)
[2017-01-13 07:49] LABS: ALBUMIN 3.1 g/dL (3.4-5.0); ALKALINE PHOSPHATASE 57 U/L (46-116); ALT (SGPT) 26 U/L (10-68); BILIRUBIN - TOTAL 0.25 mg/dL (0.2-1.3); CALC OSMOLALITY 287 mosm/kg (275-300); CALCIUM 8.5 mg/dL (8.5-10.1); CARBON DIOXIDE 25.8 mmol/L (21.0-32.0); CHLORIDE - SERUM 106 mmol/L (98-107); CREATININE - SERUM 7.6 mg/dL (0.6-1.3); GLUCOSE 88 mg/dL (74-106); POTASSIUM - SERUM 4.8 mmol/L (3.5-5.1); PROTEIN - SERUM 7.1 g/dL (6.4-8.2); SODIUM 142 mmol/L (136-145); UREA NITROGEN 30 mg/dL (7-18); eGFR NON AFRICAN AMERICAN 7 mL/min (90-120)
[2017-01-13 08:00] LABS: CHOL - HDL RATIO 2.2 ratio (2.3-4.9); CHOLESTEROL, TOTAL 88 mg/dL (0-200); CKMB 0.6 U/L (0.0-3.6); CREATINE KINASE 37 UL (21-232); HDL CHOLESTEROL 40 mg/dL (32-96); LDL CHOLESTEROL 34 mg/dL (0-100); LDL-HDL RATIO 0.9 ratio (1.5-3.5); TRIGLYCERIDE 70 mg/dL (30-200); TROPONIN-I 0.021 ng/mL (0.000-0.060)
[2017-01-13 08:06] LABS: BASOPHILS 1 % (0-2); EOSINOPHILS 7 % (0-7); LYMPHOCYTES 23 % (15-50); MONOCYTES 5 % (2-11); NEUTROPHILS 60 % (40-80); PLATELET ESTIMATE NORMAL; PLATELET MORPHOLOGY GIANT PLTS PRESENT
--- NOTE | 2017-01-13 09:42 | NUR ---
REC'D TO ROOM 2304. HOOKED UP TO CM. DENIES CHEST PAIN. NITRO INFUSING AT RIGHT WREIST PIV. DRSG CD&I. NO S/S OF INFILTRATION. A&O X2. REORIENTED TO TIME. RIGTH UPPER ARM FISTULA. THRILL AND BRUIT PRESENT. DENIES NEEDS. CLWR. CPOC.
--- NOTE | 2017-01-13 12:39 | NUR ---
NITRO OFF PER DR. KOENIG
--- NOTE | 2017-01-13 13:13 | NUR ---
NITRO OFF. DENIES PAIN. VSS.
[2017-01-13 13:31] LABS: CREATINE KINASE 38 UL (21-232)
[2017-01-13 13:33] LABS: TROPONIN-I < 0.017 ng/mL (0.000-0.060)
--- NOTE | 2017-01-13 14:04 | NUR ---
ORDERS REC'D TO MOVE TO FLOOR. MOVING TO ROOM 2124. REPORT CALLED. READY TO TRANSFER AFTER WAITING 15 MINUTES REQUESTED BY KRYS GERMAIN.
--- NOTE | 2017-01-13 14:22 | NUR ---
RECEIVED PT VIA BED FROM ICU IN STABLE CONDITION RESP UNLABORED SKIN W/D COLOR WNL TELEMETRY APPLIE SR RATE 60 SUCTION SET UP PT HAS MODERATE SECRETIONS SO PT CAN SUCTION NEEDED NAD NOTED WILL CONTINUE TO MONITOR
[2017-01-13 19:39] LABS: CKMB 0.7 U/L (0.0-3.6); CREATINE KINASE 38 UL (21-232)
[2017-01-13 19:44] LABS: TROPONIN-I 0.016 ng/mL (0.000-0.060)
--- NOTE | 2017-01-13 19:51 | NUR ---
RESUMED CARE OF PT, UP IN BED RESPIRATIONS EVEN AND UNLABORED ON ROOM AIR. 73 SR ON TELEMETRY. RIGHT FOREARM SALINE LOCKED. CALL LIGHT IN REACH. WILL CONTINUE TO MONITOR. SEE NURSE ASSESSMENT.
[2017-01-14 00:51] VITALS: BP 153/57
[2017-01-14 02:15] LABS: CKMB 1.1 U/L (0.0-3.6); CREATINE KINASE 47 UL (21-232); TROPONIN-I 0.018 ng/mL (0.000-0.060)
[2017-01-14 05:19] VITALS: BP 164/63
--- NOTE | 2017-01-14 06:44 | NUR ---
NO CHANGES FROM PREVIOUS ASSESSMENT. CALL LIGHT IN REACH.
[2017-01-14 08:21] VITALS: BP 166/66
--- NOTE | 2017-01-14 08:45 | NUR ---
CONSENTS SIGNED FOR [facility]. PRE-OPS GIVEN. TO BRIM POUNCING MACHINE OPERATOR BY BED.
--- NOTE | 2017-01-14 10:03 | NUR ---
BACK FROM TISSUE TECHNOLOGIST. VS WNL. RIGHT GROIN STABLE WITHOUT BLEEDING OR HEMATOMA NOTED. WILL MONITOR.
--- NOTE | 2017-01-14 10:26 | NUR ---
TAKEN TO DIALYSIS BY BED. WILL CONT. PLAN OF CARE.
--- NOTE | 2017-01-14 11:08 | CN ---
PATIENT NAME:BRITTON HEATH MEDICAL RECORD: [id number] : 37 LOCATION:[address] ADMIT DATE: 01/13/17 ACCOUNT: [id number] CONSULTING PHYSICIAN: OFELIA GAN MD REFERRING PHYSICIAN: JOY WHEAT MD DATE OF CONSULTATION: 01/13/2017 HISTORY OF PRESENT ILLNESS: A 81-yearold gentleman with a history of coronary artery disease on dialysis. Has a history of coronary artery disease, status post intervention over a year ago, admitted with chest pain, shortness of breath. ECG showed LVH only. We are asked to see him concerning his cardiovascular status. PAST MEDICAL HISTORY: 1. Includes history of chronic renal insufficiency. 2. Hypertension. 3. Dyslipidemia. 4. Hypothyroidism, on replacement. ALLERGIES: IV DEXTRAN. MEDICATIONS: Typically include Synthroid 75 mcg q. day, Protonix 40 q. day, tramadol 50 q.6 p.r.n., Zoloft 25 q.h.s., metoprolol 50 t.i.d., lisinopril 20 q. day, Imdur 30 q. day, hydralazine 50 t.i.d., Lipitor 20 q. day, amlodipine 5 q. day, Aricept 5 q. day. SOCIAL HISTORY: He is nonsmoker, nondrinker, currently resides in a shelter. REVIEW OF SYSTEMS: The patient reports easy bruising but reports no swollen glands. The patient reports no fever, no night sweats, no significant weight gain, no significant weight loss. No significant exercise tolerance. The patient reports no dry eyes, no irritation, no vision change. Patient reports no difficulty hearing and no ear pain. Patient reports no frequent nose bleeds or nose and sinus problems. Patient reports on arm pain on exertion. No shortness of breath while lying down. No history of heart murmur. Patient reports no cough, no wheezing or coughing up blood. Patient reports no abdominal pain, no vomiting. Normal appetite. No diarrhea and not vomiting blood. No nausea and no constipation. Patient reports no incontinence. No difficulty urinating. No hematuria. No increased frequency. Patient reports no muscle aches. No weakness, no arthralgias, no back pain. No swelling of the extremities. Patient reports no abnormal mole, no jaundice, no rashes. Reports no loss of consciousness. No weakness and no numbness. No seizures, dizziness, or headaches. The patient reports no depression, no sleep disturbance, feeling safe in a relationship and no alcohol abuse. Patient reports on fatigue. Reports no runny nose or sinus pressure. No itching, no hives, and no frequent sneezing. PHYSICAL EXAMINATION: GENERAL: Pleasant gentleman in acute distress, somewhat poor historian, very pleasant. VITAL SIGNS: 149/63, pulse 60 and regular. HEENT: Normocephalic, atraumatic. NECK: No JVD or bruit. HEART: Regular. CONSULT REPORT [id number] IVANA,DORROSCOEA LUNGS: Chaparro clear. ABDOMEN: Soft, nontender. EXTREMITIES: Pulses 2+. No edema. DIAGNOSTIC DATA: ECG shows LVH only. IMPRESSION: Acute coronary syndrome. No evidence of ST elevation, by 12-lead. PLAN: For angiography, intervention based on above. TRANSINT:[id number] Voice Confirmation ID: [id number] DOCUMENT ID: [id number] OFELIA GAN MD at 1108 CC: [id number] DICTATION DATE: 01/13/17 1248 REVIEW ASSISTANT: 01/13/17 1450 ADM IN [facility] [address] [place] [address]
[2017-01-14 13:49] VITALS: BMI 16.5
[2017-01-14 15:58] VITALS: BP 130/59
--- NOTE | 2017-01-14 19:17 | NUR ---
ASSESSMENT COMPLETE, PT IN BED RESTING, RESPERATIONS EVEN, IV TO RIGHT FOREARM SL, SITE CLEAN AND DRY. PT DENIES PAIN OR NEEDS, BED LOW, CL IN REACH. WILL CONT TO MONITOR.
[2017-01-14 19:32] VITALS: BP 139/58
[2017-01-15] VITALS: BP 138/56
--- NOTE | 2017-01-15 02:41 | NUR ---
RESTING WITH EYES CLOSED, RESPERATIONS EVEN, NO S/S DISTRESS NOTED.
[2017-01-15 04:04] VITALS: BP 122/56
[2017-01-15 05:57] LABS: BASOPHILS 0.2 % (0-2); EOSINOPHILS 3.7 % (0-7); HEMATOCRIT 37.3 % (42.0-54.0); HEMOGLOBIN 11.9 g/dL (13.5-17.5); IMMATURE GRANULOCYTES 0.2 % (0-5); LYMPHOCYTES 21.4 % (15-50); MCH 29.7 pg (26.0-34.0); MCHC 31.9 g/dL (31.0-37.0); MEAN PLATELET VOLUME 11.4 fL (7.4-10.4); MONOCYTES 14.3 % (2-11); NEUTROPHILS 60.2 % (40-80); PLATELET COUNT 159 10x3/uL (130-400); RBC 4.01 10x6/uL (4.20-6.10); RDW 14.8 % (11.5-14.5); WBC 4.9 10x3/uL (4.8-10.8)
[2017-01-15 06:19] LABS: ANION GAP 16.9 mmol/L (8-16); CALCIUM 8.4 mg/dL (8.5-10.1); CREATININE - SERUM 7.8 mg/dL (0.6-1.3); PHOSPHOROUS 5.1 mg/dL (2.5-4.9); POTASSIUM - SERUM 4.9 mmol/L (3.5-5.1)
[2017-01-15 07:42] VITALS: BP 134/57
--- NOTE | 2017-01-15 10:53 | NUR ---
Patient Name: BRITTON HEATH Admission Status: ER Accout number: [id number] Admission Date: 01-13-2017 : 1935 Admission Diagnosis: Attending: SAVANNA Current LOS: 2 Anticipated DC Date: 01-15-2017 Planned Disposition: Nursing Facility [facility] Cert Primary Insurance: MEDICARE A & B PLANNED EXTERNAL PROVIDER: [facility], LONG TERM CARE MEDICAID BED Discharge Planning Comments: * Is the patient Alert and Oriented? Yes 0 * How many steps to enter\exit or inside your home? NONE 0 * PCP DR. COULTER 0 * Pharmacy [facility] 0 * Preadmission Environment [facility] 0 * Facility [facility] * ADLs Partial Dependent 0 * Partial ADLs (Assistance needed) Bathing Medication Management 0 * Equipment Other 0 * Other Equipment ALL MEDICAL EQUIPMENT PROVIDED BY FACILITY 0 * List name and contact numbers for known caregivers / representatives who currently or will assist patient after discharge: UNIQEU HEATH, SON, 0 * Community resources currently utilized Other 0 * Please name any agencies selected above. OUTPATIENT DIALYSIS, [facility], M/W/F, 0645AM 0 * Additional services required to return to the preadmission environment? No 0 * Can the patient safely return to the preadmission environment? Yes 0 * Has this patient been hospitalized within the prior 30 days at any hospital? No 0 CM RECEIVED DISCHARGE ORDER, MET WITH PT IN ROOM TO DISCUSS DISCHARGE PLANNING FOR TOMORROW AND NEEDS. PT REPORTS LIVING AT [facility] [place]. PT REPORTS HAVING ASSISTANCE OF STAFF THERE NEEDED. PT REPORTS HAVING ALL NEEDED MEDICAL EQUIPMENT. PT REPORTS HE WILL BE RETURNING TO THE LONGTERM WHERE HE LIVES, THE FACILITY [facility] TRANSPORTS HIM TO AND FROM DIALYSIS. PT WOULD LIKE CM TO CALL HIS SON UNIQUE. PT REPORTS SOMEONE AT THE LONGTERM TORE UP HIS BIBLE, HE THINKS IT COULD HAVE BEEN SOMEONE WHO WORKS THERE. PT STATES HE TOLD HIS SON ABOUT IT ALREADY. PT HAS NOT COMPLAINED TO ANYONE AT THE LONGTERM. CM OFFERED TO HAVE SOMEONE LOOK INTO IT. PT IN AGREEMENT. IMPORTANT MESSAGE FROM MEDICARE PROVIDED AND EXPLAINED. CM CALLED AND NOTIFIED PT'S SON, UNIQUE, WHO IS IN AGREEMENT WITH DISCHARGE BACK TO THE LONGTERM. CM FAXED STEFANO, CLINICAL LIAISON FOR [facility], , NOTIFIED OF DISCHARGE TODAY, ASKED HER TO LOOK INTO WHAT HAPPENED TO PT'S BIBLE. CM FAXED UPDATE AND DISCHARGE INFORMATION TO [phone]. NURSE REPORT TO BE CALLED TO [facility] AT [phone]. [facility] TO [facility]RANGE VAN TRANSPORTATION AROUND 3PM TODAY. PT AND ANALOG DESIGN ENGINEER NOTIFIED. Line Assembly Utility Worker: Oswaldo Chong
[2017-01-15 11:23] VITALS: BP 113/56
--- NOTE | 2017-01-15 12:32 | OP ---
PATIENT NAME: BRITTON HEATH MEDICAL RECORD: [id number] :37 LOCATION:[address] D.2125 ADMISSION DATE:01/13/17 SURGEON: OFELIA GAN MD DATE OF OPERATION: 01/14/2017 PROCEDURE: Left heart catheterization, selective coronary angiography, right femoral artery approach. CATHETERS: A 5-Thai sheath, 5/4 Haylee, 5/4 pig. The procedure was well tolerated and the patient was returned to [facility], sheath removed. ExoSeal device placed. FINDINGS: Left ventriculography mild inferior hypokinesis. Overall function minimally reduced at lower limits of normal 45% to 50%. CORONARY ANATOMY: LEFT MAIN: Left main is free of disease. LAD: Shows no evidence of restenosis or previously placed stent. No evidence of progression of [place] disease. CIRCUMFLEX: No evidence of restenosis. No progression of [place] disease. RIGHT CORONARY ARTERY: Large, dominant artery. No evidence of restenosis. No evidence of progression of disease. IMPRESSION: Left ventricular function lower limits of normal, patent stents. No progression of [place] heiden disease. TRANSINT:[id number] Voice Confirmation ID: [id number] DOCUMENT ID: [id number] OFELIA GAN MD at 1232 CC: [id number] DICTATION DATE: 01/14/17 0945 THEATRICAL PERFORMER: 01/14/17 1141 ADM IN [facility] [address] [place] [address]
--- NOTE | 2017-01-15 14:30 | NUR ---
ALERT AND ORIENTED X3. REPORT CALLED TO TERRY CHERRY AT [facility]. DC RT FA IV TIP INTACT. DISCHARGE INSTRUCTIONS GIVEN VERBALLY AND WRITTEN. DISCHARGE PAPERS SIGNED ON CHART. WAITING FOR RESIDENTIAL TRANSPORTATION. CONTINUE PLAN OF CARE AND SAFETY PRECAUTIONS.
--- NOTE | 2017-01-15 17:32 | NUR ---
ALERT AND ORIENTED. [facility] ARRIVES FOR TRANSPORT. ASSIST TO WHEELCHAIR FOR DEPARTURE. REMAINS FREE FROM INJURY.
--- NOTE | 2017-01-16 06:56 | DS ---
PATIENT:BRITTON HEATH :[birth year] MEDICAL RECORD: [id number] DISCHARGE SUMMARY ADMISSION DATE: 01/13/17 DISCHARGE DATE: 01/15/17 HISTORY OF PRESENT ILLNESS: Mr. Heath is an 81-year-old black male with end-stage renal disease, chronic dialysis, who is chronic and [facility] confined. He has chronic dementia. He has a history of cardiomyopathy, recurrent chest pains, coronary artery disease with stenting in the past, sent to the Emergency Room from [facility] with complaint of chest pain, admitted for the above. HOSPITAL COURSE: The patient underwent acute dialysis, taken to the film laboratory technician where Dr. Waggoner did a cardiac cath. His stents were all patent, and his ejection fraction was 50%, which is a marked improvement from previous values. Postoperatively, he did well. We resumed his home medications. DISCHARGE DIAGNOSES: 1. Chest pain, probably noncardiac in origin. 2. History of coronary artery disease and cardiomyopathy, improved via cardiac catheterization. 3. End-stage renal disease, chronic dialysis. 4. Chronic anemia on erythropoietin. 5. Hypothyroidism. 6. 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 7. Hypertension. PLAN: The patient will be discharged back to the [facility]. He will resume [place] dialysis tomorrow. He will continue his renal diet. Ambulation as tolerated. DISCHARGE MEDICATIONS: Metoprolol 50 daily, Synthroid 75 mcg daily, Nephro-Felecia 1 daily, Premarin 0.3 daily, Protonix 40 mg daily, Renagel 800 t.i.d. He will receive Ultram and Ativan and Tylenol p.r.n., lisinopril 20 daily, isosorbide 20 mg daily, hydralazine 50 b.i.d., Lipitor 20 at bedtime, amlodipine 10 at bedtime, albuterol p.r.n., Aricept 5 mg at bedtime, Mucinex p.r.n. He will resume erythropoietin as an outpatient in the dialysis unit. Continue p.r.n. Valium, Zofran and baby aspirin 81 mg daily. He will resume his renal diet and we will see him weekly in dialysis. TRANSINT:[id number] Voice Confirmation ID: [id number] DOCUMENT ID: [id number] TYE FLANNERY MD at 0656 CC: [id number] DICTATION DATE: 01/15/17715 MECHANIC INDUSTRIAL TRUCK: 01/15/17816 DIS IN 01/15/17 [place] [address] [facility] [address]
== END 2017-01-15 17:46 | DRG 286 ==
LOC: D.ER 06:58 → D.ICU 09:05 → D.M2 09:05
PROVIDERS: Emergency Medicine; Family Medicine; Internal Medicine Interventional Cardiology; Internal Medicine Nephrology; ADMIT Internal Medicine
PROC: B2111ZZ Fluoroscopy of Multiple Coronary Arteries using Low Osmolar Contrast (ICD-10-PCS; 2017-01-14)
PROC: B2151ZZ Fluoroscopy of Left Heart using Low Osmolar Contrast (ICD-10-PCS; 2017-01-14)
PROC: 4A023N7 Measurement of Cardiac Sampling and Pressure, Left Heart, Percutaneous Approach (ICD-10-PCS; 2017-01-14)
PROC: 5A1D70Z Performance of Urinary Filtration, Intermittent, Less than 6 Hours Per Day (ICD-10-PCS; principal; 2017-01-14 09:00)
DX: R07.89 Other chest pain (principal); N18.6 End stage renal disease; I12.0 Hypertensive chronic kidney disease with stage 5 chronic kidney disease or end stage renal disease; I42.9 Cardiomyopathy, unspecified; Z99.2 Dependence on renal dialysis; G30.9 Alzheimer's disease, unspecified; F02.80 Dementia in other diseases classified elsewhere, unspecified severity, without behavioral disturbance, psychotic disturbance, mood disturbance, and anxiety; I25.10 Atherosclerotic heart disease of native coronary artery without angina pectoris; Z95.5 Presence of coronary angioplasty implant and graft; E03.9 Hypothyroidism, unspecified; D64.9 Anemia, unspecified

== ENCOUNTER 2017-06-03 00:52 | Inpatient (IN) | payer MEDICARE ==
[~2017-06-03] VITALS: Ht 177.8 cm; Wt 77.0 kg
--- NOTE | ~2017-06-03 | HEMODYNAMI ---
PATIENT:BRITTON HEATH MEDICAL RECORD: [id number] : 37 LOCATION:[facility].2126 ADMISSION DATE: 06/04/17 Generatedon:06/05/201710:19 Patient name: BRITTON HEATH Patient #: [id number] SSN: DO B: 1935 Date of study: 06/05/2017 Page: Of Hemodynamic Procedure Report Patient Data Patient Demographics Procedure consent was obtained First Name: BRITTON Gender: Male Last Name: IVANA Suffix: Patient #: [id number] : 1935 Age: 81 year(s) Accession #: Race: Black [id number] Additional ID: [id number] Contact details [address]: [address] [place] [address] ROAD State: [place] City: [place] Zip code: [address] Past Medical History History of disease Date Diagnosis Comments 03/12/2014 CAD Admission Admission Data Admission Date: 06/04/2017 Admission Time: 14:44 Room #: 2126 Procedure Procedure Types Cath Procedure Diagnostic Procedure [facility] w/Coronaries FFR/IVUS Intra-Coronary IVUS Initial Sedation Charges Moderate Sedation up to 30 minutes PCI Procedure Coronary Stent Coronary Stent Initial Peripheral Cath Diagnostic Procedure Cath Peripheral Aildx-Updenoo-Fql-Off Procedure Description Procedure Date Procedure Date: 06/05/2017 Procedure Start Time: 9:40 Procedure End Time: 10:17 Procedure Staff Name Function Xander Perry MD Performing Physician Raven Dwyer RT Monitor Librado Quezada RN Nurse Rickie Adames RN Big Data Lead Leeann Chaparro RT Scrub Procedure Data Cath Procedure Fluoroscopy Diagnostic fluoroscopy Total fluoroscopy Time: 9.4 time: 9.4 min min Diagnostic fluoroscopy Total fluoroscopy dose: 555 dose: 555 mGy mGy Contrast Material Contrast Material Type Amount (ml) Isovue 300 122 Entry Location Entry Primary Successful Side Size Upsize Upsize Entry Closure Succes sful Closure Location (Fr) 1 (Fr) 2 (Fr) Remarks Device Remarks Femoral Right 5 Fr Exoseal artery Femoral Left 5 Fr 6 Fr Exoseal artery Short Estimated blood loss: 10 ml Diagnostic catheters Device Type Used For End Catheter Placement MULTIPACK 3DRC 5Fr Procedure catheter MULTIPACK 3DRC 5Fr Right Coronary catheter Angiography MULTIPACK JL 4.0 5Fr Left Coronary catheter Angiography MULTIPACK Pigtail 5 Fr LV Angiography catheter MULTIPACK Pigtail 5 Fr Abdominal catheter aortogram with runoff Procedure Complications No complications Procedure Medications Medication Administration Route Dosage 0.9% NaCl I.V. 10 ml/hr Oxygen NC 2 l/min Heparin Flush Bag added to field 2 bags (1000units/500ml NS) Lidocaine 2% added to field 20 Fentanyl I.V. 50 mcg Fentanyl I.V. 25 mcg Heparin Bolus I.V. 4000 units Fentanyl I.V. 25 mcg Hemodynamics Rest Heart Rate: 76 (bpm) Snapshots Pre Cath Intra NCS Post Cath Vital Signs Time Heart Resp SPO2 etCO2 NIBP (mmHg) Rhythm Pain Sedation Rate (ipm) (%) (mmHg) Status Level (bpm) 9:23:02 76 15 98 0 179/78(124) NSR 0 (11) 10(A) , No pain 9:27:51 74 14 99 0 162/73(131) NSR 0 (11) 10(A) , No pain 9:32:36 73 14 98 0 167/71(125) NSR 0 (11) 10(A) , No pain 9:37:22 71 13 98 0 158/67(126) NSR 0 (11) 10(A) , No pain 9:42:05 73 16 98 1.5 169/74(135) NSR 0 (11) 10(A) , No pain 9:46:52 72 12 97 1.5 172/67(129) NSR 0 (11) 10(A) , No pain 9:51:38 73 15 96 0 174/73(142) NSR 0 (11) 10(A) , No pain 9:56:23 72 14 97 1.5 187/82(152) NSR 0 (11) 10(A) , No pain 10:01:10 78 15 93 0 189/84(148) NSR 0 (11) 10(A) , No pain 10:05:59 75 13 95 23.4 173/81(137) NSR 0 (11) 10(A) , No pain 10:10:43 74 19 95 17.4 179/83(150) NSR 0 (11) 10(A) , No pain 10:15:28 74 12 94 0 184/86(148) NSR 0 (11) 10(A) , No pain Medications Time Medication Route Dose Verified Delivered Reason Notes Effectiveness by by 9:22:33 0.9% NaCl I.V. 10 Librado Librado Per physician ml/hr Pilar Quezada RN RN 9:23:15 Oxygen NC 2 Librado Librado Per physician l/min Pilar Quezada RN RN 9:23:34 Heparin Flush added 2 Librado Librado used for Bag to bags Lorluna Quezada procedure (1000units/500ml field RN RN NS) 9:23:47 Lidocaine 2% added 20ml Librado Librado for local to vial Lorigan Pilar anesthetic field RN RN 9:33:33 Fentanyl I.V. 50 Librado Librado for sedation mcg Pilar Quezada RN RN 9:53:03 Fentanyl I.V. 25 Librado Librado for sedation mcg Pilar Quezada RN RN 9:57:50 Heparin Bolus I.V. 4000 Librado Librado for units Lorigan Pilar anticoagulation RN RN 10:01:38 Fentanyl I.V. 25 Librado Librado for sedation mcg Pilar Quezada RN natural resource economist Log Time Note 8:31:24 Raven Counts RT(R) sent for patient. Start room use. 8:31:25 Time tracking: Regular hours 8:31:29 Plan of Care:Hemodynamics will remain stable., Cardiac rhythm will remain stable., Comfort level will be maintained., Respiratory function will remain adequate., Patient/ family verbilizes understanding of procedure., Procedure tolerated without complication., Recovers from procedure without complications.. 8:58:41 Patient received from Med II to CCL 1 Alert and oriented. Tansferred to table in Supine position. 8:58:42 Warm blankets applied, and petros hugger turned on for patient comfort. 8:58:42 Correct patient and procedure confirmed by team. 8:58:44 Signed procedure consent form obtained from patient. 8:58:45 ECG and BP/O2 sat monitors applied to patient. 8:58:52 PATIENT ARRIVED WITHOUT IV. NURSE ON FLOOR ATTEMPTED TO START NEW IV TWICE. 9:02:08 Full Disclosure recording started 9:13:24 IV started by Rickie Adames RN inright forearm with a 22 gauge IV catheter with 0.9% NaCl at KVO. 9:22:06 Vital chart was started 9:22:33 0.9% NaCl 10 ml/hr I.V. was administered by Librado Quezada RN; Per physician; 9:23:14 Rhythm: sinus rhythm 9:23:15 Baseline sample Acquired. 9:23:15 Oxygen 2 l/min NC was administered by Librado Quezada RN; Per physician; 9:23:34 Heparin Flush Bag (1000units/500ml NS) 2 bags added to field was administered by Librado Quezada RN; used for procedure; 9:23:47 Lidocaine 2% 20ml vial added to field was administered by Librado Quezada RN; for local anesthetic; 9:24:13 H&P Date Dictated: 06/03/2017 Within 30 days and on chart.. 9:24:16 Pre-procedure instructions explained to patient. 9:24:16 Pre-op teaching completed and patient verbalized understanding. 9:24:19 Family unavailable. 9:24:21 Patient NPO since Midnight. 9:24:35 Is the patient allergic to Iodine/contrast media? No. 9:24:40 Is patient on blood thinner?Yes 9:24:42 ACC The patient was administered the following blood thiners within the last 24 hours: ACCPlavix 9:24:44 Patient diabetic? Yes. 9:24:45 If diabetic: On Metformin? No 9:25:33 Previous problem with sedation/anesthesia? No ? 9:25:34 Snore? Yes 9:25:35 Sleep apnea? No 9:25:36 Deviated septum? No 9:25:37 Opens mouth fully? No 9:25:37 Sticks out tongue? Yes 9:25:44 Airway obstruction? Yes ASTHMA 9:25:48 Dentures? No ? 9:25:52 Pre procedure: right dorsailis pedis pulse 1+ Palpable, but thready & weak; easily obliterated 9:25:54 Patient pain scale 0/10 ?. 9:25:58 Lab results completed and on chart. 9:26:01 Right groin area was prepped with chlora-prep and draped in sterile fashion 9:26:02 Alarms reviewed by R. N. 9:26:03 Sharps counted by scrub and verified by R.N. 9:26:05 Final Timeout: patient, procedure, and site verified with staff and physician. All members of the team are in agreement. 9:26:06 Right groin site verified by team. 9:26:09 Physical assessment completed. ASA score P 2 - A patient with mild systemic disease as per Xander Perry MD. 9:26:11 Sedation plan: IV Moderate Sedation Medication:Versed, Fentanyl 9:26:57 Zero performed for pressure channel P1 9:28:25 Use device set Femoral Dx 9:28:26 ACIST Syringe (42653) opened to sterile field. 9:28:27 Bag Decanter (2002S) opened to sterile field. 9:28:27 Medline Cath Pack ([id number]) opened to sterile field. 9:28:27 SHEATH 5FR Seadrift (DBB763) opened to sterile field. 9:28:28 DIAGNOSTIC WIRE .035 260cm J wire (424749) opened to sterile field. 9:28:29 ACIST Hand Control (08018) opened to sterile field. 9:28:29 ACIST Manifold (77428) opened to sterile field. 9:28:30 DIAGNOSTIC Multipack 5Fr catheter set (QO5926) opened to sterile field. 9:28:30 Tegaderm 4 x 4 (1626W) opened to sterile field. 9:28:31 PERCUTANEOUS ENTRY 19GA needle opened to sterile field. 9:33:33 Fentanyl 50 mcg I.V. was administered by Librado Quezada RN; for sedation; 9:40:08 Procedure started. 9:40:29 Local anesthetic to right femoral artery with Lidocaine 2% by Xander Perry MD.INITIAL ACCESS ONLY 9:40:44 A 5 Fr sheath was inserted into the Right Femoral artery 9:42:10 GLIDE WIRE Super Stiff Angled 260cm (NC3503) opened to sterile field. 9:42:23 SS Angled wire advanced. 9:42:57 A MULTIPACK 3DRC 5Fr catheter was advanced over the wire and used for Procedure. 9:44:20 TORQUE DEVICE PLASTIC .038 ( TD01) opened to sterile field. 9:47:39 CHOICE PT Extra Support J 300cm guide wire ([id number]) opened to sterile field. 9:47:49 Wire removed. 9:47:56 CHOICE PT ES wire advanced. 9:48:48 Left groin area was prepped with chlora-prep and draped in sterile fashion 9:49:04 Wire removed. 9:49:06 Catheter removed. 9:52:12 Local anesthetic to left femerol artery with Lidocaine 2% by Xander Perry MD.ADDITIONAL ACCESS 9:52:51 A 5 Fr sheath was inserted into the Left Femoral artery 9:53:03 Fentanyl 25 mcg I.V. was administered by Librado Quezada RN; for sedation; 9:53:05 SHEATH 5FR Seadrift (RCK090) opened to sterile field. 9:53:35 SS GLIDE wire advanced. 9:53:56 A MULTIPACK 3DRC 5Fr catheter was advanced over the wire and used for Right Coronary Angiography. 9:54:53 Catheter removed. 9:55:05 A MULTIPACK JL 4.0 5Fr catheter was advanced over the wire and used for Left Coronary Angiography. 9:55:10 Use device set [facility] PCI 9:55:14 INFLATOR Merit BasixCompak (ZK5143) opened to sterile field. 9:55:15 SHEATH 6FR Seadrift (DRK896) opened to sterile field. 9:56:49 Catheter removed. 9:56:56 A MULTIPACK Pigtail 5 Fr catheter was advanced over the wire and used for LV Angiography. 9:57:06 GUIDE 6FR 3DRC SH catheter ([id number]) opened to sterile field. 9:57:12 [place] Venetie Eagleye IVUS Catheter (42866D) opened to sterile field. 9:57:46 LV gram done using JONES 9:57:48 Injector settings: Ml/sec: 10, Volume: 20, 9:57:50 Heparin Bolus 4000 units I.V. was administered by Librado Quezada RN; for anticoagulation; 9:58:05 EF : 40 % 9:58:42 A MULTIPACK Pigtail 5 Fr catheter was advanced over the wire and used for Abdominal aortogram with runoff. 9:59:04 Catheter removed. 10:00:42 Sheath upsized to a 6 Fr Short. 10:00:46 6 Fr 3DRC SH guide catheter was inserted over the wire 10:01:38 Fentanyl 25 mcg I.V. was administered by Librado Quezada RN; for sedation; 10:01:50 CHOICE PT ES wire advanced. 10:03:12 IVUS catheter advanced over wire. 10:03:23 IVUS pass to RCA lesion performed. 10:06:18 IVUS catheter removed over wire. 10:08:12 Inflation Number: 1 A INTEGRITY OTW 4.0 X 22 stent ([id number]) was prepped and advanced across the Prox RCA. The stent was deployed at 21 SOULEYMANE for 0:03 (min:sec). 10:08:33 Inflation number: 2 The stent balloon was then re-inflated across the Prox RCA to 19 SOULEYMANE for 0:10 (min:sec). 10:08:55 Stent catheter was removed intact over wire. 10:08:56 Wire removed. 10:08:56 Guide catheter removed. 10:09:04 Sheath removed intact; hemostasis achieved with Exoseal to the Left Femoral artery. 10:09:08 Sheath removed intact; hemostasis achieved with Exoseal to the Right Femoral artery. 10:09:11 Procedure ended.(Physican Out) 10:09:20 Fluoroscopy time 09.40 minutes. 10:09:23 Flurop Dose total: 555 10:09:23 Fluoroscopy dose: 555 mGy 10:09:26 Contrast amount:Isovue 300 122ml. 10:09:28 Sharps counted by scrub and verified by R.N. 10:09:28 Insertion/operative site no bleeding no hematoma. 10:09:31 Post-op/insertion site Right Femoral artery dressed using a 4 x 4 and Tegaderm. 10:09:36 Post right femoral artery:stable, clean and dry 10:09:40 Post-op/insertion site Left Femoral artery dressed using a 4 x 4 and Tegaderm. 10:09:44 Post left femerol artery:stable, clean and dry 10:09:46 Post Procedure Pulses reassessed and unchanged 10:09:49 Post-procedure physical assessment completed. ASA score P 2 - A patient with mild systemic disease as per Xander Perry MD. 10:09:51 Post procedure rhythm: unchanged. 10:09:54 Estimated blood loss: 10 ml 10:09:55 Post procedure instruction explained to patient.Patient verbalizes understanding. 10:09:55 Patient needs reinforcement of post procedure teaching. 10:10:15 Procedure type changed to Cath procedure, Diagnostic procedure, LHC, LHC w/Coronaries, FFR/IVUS, Intra-Coronary IVUS Initial, Sedation Charges, Moderate Sedation up to 30 minutes, PCI procedure, Coronary Stent, Coronary Stent Initial, Peripheral Cath Diagnostic Procedure, Cath Peripheral, Qyawf-Avtrufg-Ahh-Off 10:10:30 Procedure Complication : No complications 10:10:32 See physician's report for complete and final results. 10:15:57 EXOSEAL 6Fr (EX600) opened to sterile field. 10:16:07 EXOSEAL 5Fr (EX500) opened to sterile field. 10:16:46 Tegaderm 4 x 4 (1626W) opened to sterile field. 10:17:22 Procedure and supply charges have been captured, reviewed, submitted and are correct. 10:17:23 Vital chart was stopped 10:17:25 Report given to PCU. 10:17:29 Patient transfered to PCU with Bed. 10:17:37 Procedure ended. 10:17:37 Full Disclosure recording stopped 10:18:28 End room use (Document Last) Intervention Summary Intervention Notes Time ActionType Lesion and Equipment Action# Pressure Duration Attributes Used 10:08:12 Place stent Prox RCA INTEGRITY 1 21 00:03 OTW 4.0 X 22 stent ([id number]) 10:08:33 Reinflate Prox RCA INTEGRITY 2 19 00:10 stent OTW 4.0 X balloon 22 stent ([id number]) Device Usage Item Name Manufacture Quantity Catalog Number Hospital Part Current Mini [facility] Lot# / Charge Number Stock Stock Serial# Code ACIST Acist 1 75892 755338 891576 433819 20 Syringe Medical (13397) Systems Inc Bag Decanter Microtek 1 030797 30671 455354 5 () Medical Inc. Medline Cath Cardinal 1 [id number] 445872 54106 064779 5 ProNoxis ([id number]) SHEATH 5FR Terumo 2 WAM987 962394 370145 081158 40 Seadrift (SJF522) DIAGNOSTIC [place] 1 739649 299011 109852 487096 30 WIRE .035 260cm J wire (543579) ACIST Hand Acist 1 83579 039498 093434 959682 5 Control Medical (73769) Systems Inc ACIST Acist 1 67627 271651 378429 966962 5 Manifold Medical (39898) Systems Inc DIAGNOSTIC Cardinal 1 ZR5444 536370 78304 622210 30 Multipack Health 5Fr catheter set (CT1945) Tegaderm 4 x 3M 2 1626W 078792 571299 399257 5 4 (1626W) PERCUTANEOUS Cook Medical 1 T72218 615324 416752 5 ENTRY 19GA needle GLIDE WIRE Terumo 1 RL5602 029396 411853 306479 5 Super Stiff Angled 260cm (RX3591) MULTIPACK Cardinal 1 245305 5 3DRC 5Fr Health catheter TORQUE Norris 1 TD01 429332 658765 138101 5 DEVICE Scientific PLASTIC .038 ( TD01) CHOICE PT Norris 1 [id number] 276342 668082 059490 5 Extra Scientific Support J 300cm guide wire ([id number]) MULTIPACK JL Cardinal 1 726705 5 4.0 5Fr Health catheter INFLATOR Merit 1 IW7590 220134 285233 412243 15 Quantum Secure Medical BasixCompak (JS3515) SHEATH 6FR Terumo 1 GOS816 970773 314951 904033 40 Seadrift (RSS390) MULTIPACK Cardinal 1 291535 5 Pigtail 5 Fr Health catheter GUIDE 6FR Medtronic 1 [id number] 074602 072712 311736 1 3DRC SH catheter ([id number]) [place] 1 [id number] 976670 126773 069868 8 Venetie Eagleye IVUS Catheter (85485S) INTEGRITY Medtronic 1 [id number] 092766 045582 5 [id number] OTW 4.0 X 22 stent ([id number]) EXOSEAL 6Fr Cardinal 1 EX600 312198 740756 561988 10 (EX600) Health EXOSEAL 5Fr Cardinal 1 EX500 361564 032119 782456 10 (EX500) Health Signature Audit Spring Stage Time Signature Unsigned Intra-Procedure 06/05/2017 Raven 10:19:16 AM Counts RT(R) Signatures Monitor : Raven Signature : Counts RT Date : Time : [facility] [address] [place] [address]
--- NOTE | ~2017-06-03 | CN ---
PATIENT NAME:BRITTON HEATH MEDICAL RECORD: [id number] : 37 LOCATION:. D.2126 ADMIT DATE: 06/04/17 ACCOUNT: [id number] CONSULTING PHYSICIAN: RAHAT VELAZCO MD REFERRING PHYSICIAN: SALUD GRANGER MD DATE OF CONSULTATION: 06/04/2017 Cardiology Consultation DIAGNOSES: 1. Angina. 2. Coronary artery disease. 3. Previous multivessel percutaneous transluminal coronary angioplasty stent. 4. End-stage renal failure, on dialysis. 5. Hypertension. 6. Hyperlipidemia. HISTORY OF PRESENT ILLNESS: Mr. Heath is admitted by the renal service for increasing episodes of anginal symptomatology. He has a history of coronary artery disease. Last cardiac intervention was in 2016. His EKG has ST-T abnormalities in the lateral leads suggestive of ischemia. REVIEW OF SYSTEMS: The patient reports easy bruising but reports no swollen glands. The patient reports no fever, no night sweats, no significant weight gain, no significant weight loss. No significant exercise tolerance. The patient reports no dry eyes, no irritation, no vision change. Patient reports no difficulty hearing and no ear pain. Patient reports no frequent nose bleeds or nose and sinus problems. Patient reports on arm pain on exertion. No shortness of breath while lying down. No history of heart murmur. Patient reports no cough, no wheezing or coughing up blood. Patient reports no abdominal pain, no vomiting. Normal appetite. No diarrhea and not vomiting blood. No nausea and no constipation. Patient reports no incontinence. No difficulty urinating. No hematuria. No increased frequency. Patient reports no muscle aches. No weakness, no arthralgias, no back pain. No swelling of the extremities. Patient reports no abnormal mole, no jaundice, no rashes. Reports no loss of consciousness. No weakness and no numbness. No seizures, dizziness, or headaches. The patient reports no depression, no sleep disturbance, feeling safe in a relationship and no alcohol abuse. Patient reports on fatigue. Reports no runny nose or sinus pressure. No itching, no hives, and no frequent sneezing. PHYSICAL EXAMINATION: GENERAL APPEARANCE: Well-nourished, well-developed, appears stated age. Level of distress, comfortable. PSYCHIATRIC: Mental status, alert, normal affect. Orientation, oriented to time, place and person. EYES: Lids and conjunctiva, noninjected. No discharge, no pallor. ENT: Lips, teeth, gums, normal dentition. Oropharynx, no cyanosis, no pallor. NECK: Carotid arteries, bilateral normal upstroke, no bruits, no thrills. JUGULAR VEINS: No jugular venous pressure or distention. CERVICAL LYMPH NODES: Nontender, nonenlarged. THYROID: Not enlarged. Nontender. No nodules. LUNGS: Respiratory effort, unlabored. CHEST: Normal curvature. No thoracic deformity. No chest wall tenderness. Percussion, resonant. Auscultation, clear. No wheezes, no rales, no rhonchi. CONSULT REPORT [id number] BRITTON HEATH CARDIOVASCULAR: Precordial exam, nondisplaced. No heaves or pericardial thrills. Rate and rhythm, regular. Heart sounds, normal S1, normal S2. No S3, no gallop, no rub. Systolic murmur, not heard. Diastolic murmur, not heard. EXTREMITIES: No cyanosis, no edema. Peripheral pulses, full and equal in all extremities, except as noted. No bruits appreciated. ABDOMEN: Soft, nondistended. Normal aorta. No bruit. Nontender. No masses. Liver, nontender, no hepatomegaly. Spleen, nontender, no splenomegaly. MUSCULOSKELETAL: No joint tenderness. No joint swelling. No erythema. NEUROLOGICAL: Normal gait, normal strength, normal tone. SKIN: Warm and dry. OVERALL IMPRESSION: Chest pain in unstable fashion, compatible with angina, past history of coronary artery disease with multiple risk factors including end-stage renal failure on dialysis. Most likely, he has recurrent hemodynamically significant coronary artery disease. We will proceed with coronary angiography in the a.m. Further care depends upon the findings of the angiography. TRANSINT:[id number] Voice Confirmation ID: [id number] DOCUMENT ID: [id number] RAHAT VELAZCO MD at 1231 CC: [id number] DICTATION DATE: 06/04/17823 GENERAL CLERK: 06/04/17844 DIS IN 06/06/17 [address] [place] [address]
--- NOTE | ~2017-06-03 | OP ---
PATIENT NAME: BRITTON HEATH MEDICAL RECORD: [id number] :37 LOCATION:D.M2 D.2126 ADMISSION DATE:06/04/17 SURGEON: RAHAT VELAZCO MD DATE OF OPERATION: 06/05/2017 PROCEDURES: 1. PTCA stent RCA. 2. Intravascular ultrasound RCA. 3. Left heart catheterization. 4. Selective coronary angiography. 5. Left ventriculogram. INDICATION: Angina and coronary artery disease. PROCEDURE IN DETAIL: After informed consent was obtained and after detailed explanation of risks, benefits as well as alternative therapies, the patient elected to proceed with angiogram and angioplasty. The left femoral area was prepped and draped in normal sterile fashion. Left femoral artery was cannulated via modified Seldinger technique with placement of 6-Indonesian sheath. All catheters exchanged through this sheath. FINDINGS: The left ventriculogram was performed in standard 30-degree JONES view, reveals mild global hypokinesis, ejection fraction in the 40% to 45% range. SELECTIVE CORONARY ANGIOGRAPHY: 1. Left main showed no significant angiographic disease. 2. Left anterior descending has previously placed stents, these are widely patent with no significant restenosis. No significant disease elsewise. 3. Left circumflex has pmjv-ai-bglcnknu irregularities, but no flow-limiting stenosis. 4. Right coronary has 65% to 70% stenosis proximally confirmed by intravascular ultrasound as well as 70% in-stent restenosis in the mid vessel. PTCA STENT OF THE RCA: The stent used was a 4.0 x 22 mm Integrity, 4-0 stent balloon was used in the in-stent restenosis in the mid vessel. Result was 0% residual stenosis. OVERALL IMPRESSION: Successful percutaneous transluminal coronary angioplasty stent of the right coronary artery going from 70% initial stenosis to 0% residual. TRANSINT:[id number] Voice Confirmation ID: [id number] DOCUMENT ID: [id number] RAHAT VELAZCO MD at 1024 CC: [id number] DICTATION DATE: 06/05/17 1018 QUALITY SYSTEMS MANAGER: 06/05/17 1238 DIS IN 06/06/17 [place] [address]
--- NOTE | ~2017-06-03 | DS ---
PATIENT:BRITTON HEATH :37 MEDICAL RECORD: [id number] DISCHARGE SUMMARY ADMISSION DATE: 06/04/17 DISCHARGE DATE: 06/06/17 HISTORY: Mr. Heath is an 81-year-old black male with end-stage renal disease, chronic [facility] confinement followed by us in [facility]. He has a known history of coronary artery disease and peripheral vascular disease with recurrent stenting by Dr. Perry in the past. He was sent to the Emergency Room from the [facility] with recurrent substernal chest pain and is admitted for the above. HOSPITAL COURSE: The patient was seen by Dr. Perry, taken to the labor custodian where his stenting on the LAD were patent and his circumflex was opened. RCA had 70% to 80% restenosis in a stent. This was angioplastied and restented. Following that, he had a bilateral lower extremity arteriogram revealing bilateral SFA disease with 2-vessel runoff on the right and 3-vessel runoff on the left. We will follow these findings as an outpatient. Post-cardiac stenting, his telemetry was stable. He was back to baseline following that and will be discharged back to the [facility]. DISCHARGE DIAGNOSES: 1. Chest pain due to coronary artery disease with stent restenosis, status post right coronary artery stent. 2. History of claudication, peripheral vascular disease, bilateral SFA disease. 3. End-stage renal disease, chronic dialysis. 4. Hypertension. 5. Hyperlipidemia. 6. Erythropoietin-dependent anemia. PLAN: The patient will be discharged today after dialysis. We will see him in [facility] weekly. He will continue his renal diet and ambulation as tolerated and follow up with cardiology. DISCHARGE MEDICATIONS: Zestril 20 q.12, Plavix 75 mg daily, Nitropatch 0.1 daily, Epogen in the dialysis unit, metoprolol 50 q.12, Protonix 40 mg daily, Isordil 20 mg daily, Synthroid 75 mcg daily, Colace 100 mg h.s., Renagel 0.8 t.i.d., tramadol p.r.n., Zoloft 25 mg q.48, baby aspirin 81 mg daily, hydralazine 50 mg b.i.d., atorvastatin 20 mg h.s., Norvasc 10 mg h.s., and Aricept 5 mg h.s. TRANSINT:[id number] Voice Confirmation ID: [id number] DOCUMENT ID: [id number] TYE FLANNERY MD at 0829 CC: [id number] DICTATION DATE: 06/06/17706 TANK STORAGE SUPERVISOR: 06/06/17 0808 DIS IN 06/06/17 [id number] [place] [address]
--- NOTE | ~2017-06-03 | OP ---
PATIENT NAME: BRITTON HEATH MEDICAL RECORD: [id number] :37 LOCATION:D.M2 D.2126 ADMISSION DATE:06/04/17 SURGEON: RAHAT VELAZCO MD DATE OF OPERATION: 06/05/2017 PROCEDURES: 1. Aortofemoral runoff. 2. Abdominal aortography. INDICATION: Claudication and peripheral vascular disease. PROCEDURE IN DETAIL: After informed consent was obtained and after detailed explanation of risks, benefits as well as alternative therapies, the patient elected to proceed with angiogram and aortofemoral runoff. The left femoral area had a preexisting sheath from cardiac intervention. All catheters exchanged through this sheath. FINDINGS: The abdominal aortography was performed. The catheter was pulled down for aortofemoral runoff. Abdominal aortography reveals no significant abdominal aortic disease. No dissection or aneurysm formation. No renal artery stenosis. RIGHT LEG: A. Iliac: The common iliac has a 50% to 70% stenosis in the mid vessel. The external iliac has previously placed stent that does appear to be widely patent. B. Femoral system: The common superficial and deep femoral have moderate irregularities. Superficial femoral has at least 1 area of 70% to 80% stenosis. C. Popliteal and infrapopliteal vessels: The popliteal is widely patent. Anterior tibial appears to be totally occluded, but there is 2-vessel runoff through the posterior tibial as well as the peroneal. LEFT LEG: A. Iliac: The common internal and external iliacs have previously placed stents. These are widely patent with no significant restenosis. No disease elsewise throughout the iliac. B. Femoral system: The common and deep femoral are widely patent. Superficial femoral has moderate irregularities, there is at least one area of 80% stenosis. C. Popliteal and infrapopliteal vessels are patent, diffusely diseased, but there is preserved 3-vessel runoff to the foot. OVERALL IMPRESSION: SFA disease bilaterally that is amenable to transcatheter revascularization in the future if the patient certifies. TRANSINT:[id number] Voice Confirmation ID: [id number] DOCUMENT ID: [id number] RAHAT VELAZCO MD at 1202 CC: [id number] DICTATION DATE: 06/05/17 1018 PERFORATING MACHINE OPERATOR: 06/05/17 1243 DIS IN 06/06/17 [place] [id number]
[2017-06-03 01:59] LABS: BASOPHILS 0.2 % (0-2); EOSINOPHILS 3.6 % (0-7); HEMATOCRIT 30.4 % (42.0-54.0); HEMOGLOBIN 9.4 g/dL (13.5-17.5); IMMATURE GRANULOCYTES 0.2 % (0-5); LYMPHOCYTES 11.5 % (15-50); MCH 28.9 pg (26.0-34.0); MCHC 30.9 g/dL (31.0-37.0); MCV 93.5 fL (80.0-100.0); MEAN PLATELET VOLUME 9.8 fL (7.4-10.4); MONOCYTES 12.3 % (2-11); NEUTROPHILS 72.2 % (40-80); RBC 3.25 10x6/uL (4.20-6.10); RDW 15.3 % (11.5-14.5); WBC 6.4 10x3/uL (4.8-10.8)
[2017-06-03 02:00] LABS: PLATELET COUNT 223 10x3/uL (130-400)
[2017-06-03 02:34] LABS: ALBUMIN 3.4 g/dL (3.4-5.0); ALKALINE PHOSPHATASE 41 U/L (46-116); ALT (SGPT) 13 U/L (10-68); BILIRUBIN - TOTAL 0.41 mg/dL (0.2-1.3); CALC OSMOLALITY 283 mosm/kg (275-300); CALCIUM 9.4 mg/dL (8.5-10.1); CARBON DIOXIDE 27.1 mmol/L (21.0-32.0); CHLORIDE - SERUM 102 mmol/L (98-107); CKMB 1.2 U/L (0.0-3.6); CREATINE KINASE 54 UL (21-232); CREATININE - SERUM 8.6 mg/dL (0.6-1.3); GLUCOSE 105 mg/dL (74-106); POTASSIUM - SERUM 4.1 mmol/L (3.5-5.1); PRO BNP 62756 pg/mL (0-450); PROTEIN - SERUM 7.5 g/dL (6.4-8.2); SODIUM 140 mmol/L (136-145); UREA NITROGEN 26 mg/dL (7-18); eGFR NON AFRICAN AMERICAN 6 mL/min (90-120)
[2017-06-04] VITALS: BP 145/66
[2017-06-04] MEDS ORDERED: TRUSOPT 2 % OPT10 ML LEFT EYE (00:47)
[2017-06-04] MEDS ORDERED: PRED-FORTE 1% OP5 ML EACH EYE (00:47)
[2017-06-04] MEDS ORDERED: TRAZODONE HCL50 MG PO (00:48)
[2017-06-04 04:00] VITALS: BP 155/63
[2017-06-04 06:26] LABS: BASOPHILS 0.1 % (0-2); EOSINOPHILS 3.2 % (0-7); HEMATOCRIT 32.8 % (42.0-54.0); HEMOGLOBIN 10.1 g/dL (13.5-17.5); IMMATURE GRANULOCYTES 0.3 % (0-5); LYMPHOCYTES 17.1 % (15-50); MCH 28.9 pg (26.0-34.0); MCHC 30.8 g/dL (31.0-37.0); MEAN PLATELET VOLUME 10.6 fL (7.4-10.4); NEUTROPHILS 68.3 % (40-80); PLATELET COUNT 261 10x3/uL (130-400); RBC 3.49 10x6/uL (4.20-6.10); RDW 15.4 % (11.5-14.5)
[2017-06-04 06:36] LABS: ANION GAP 18.3 mmol/L (8-16); CALCIUM 8.6 mg/dL (8.5-10.1); CARBON DIOXIDE 22.9 mmol/L (21.0-32.0); CREATININE - SERUM 10.6 mg/dL (0.6-1.3); POTASSIUM - SERUM 4.2 mmol/L (3.5-5.1)
[2017-06-04 08:06] VITALS: BP 146/55
[2017-06-04 10:27] VITALS: Ht 177.8 cm; Wt 77.0 kg
[2017-06-04 13:03] VITALS: BP 130/52
[2017-06-04 21:04] VITALS: BP 103/60
[2017-06-05 01:08] VITALS: BP 101/65
[2017-06-05 05:32] VITALS: BP 179/64
[2017-06-05 07:55] VITALS: BP 159/61
[2017-06-05 08:44] LABS: BASOPHILS 0.2 % (0-2); EOSINOPHILS 2.3 % (0-7); HEMATOCRIT 31.8 % (42.0-54.0); IMMATURE GRANULOCYTES 0.2 % (0-5); LYMPHOCYTES 17.1 % (15-50); MCH 29.2 pg (26.0-34.0); MCHC 31.4 g/dL (31.0-37.0); MONOCYTES 13.3 % (2-11); NEUTROPHILS 66.9 % (40-80); PLATELET COUNT 234 10x3/uL (130-400); RBC 3.42 10x6/uL (4.20-6.10); RDW 15.1 % (11.5-14.5); WBC 6.5 10x3/uL (4.8-10.8)
[2017-06-05 09:07] LABS: ANION GAP 13.1 mmol/L (8-16); CALCIUM 9.2 mg/dL (8.5-10.1); POTASSIUM - SERUM 3.8 mmol/L (3.5-5.1)
[2017-06-05 09:13] LABS: CARBON DIOXIDE 28.7 mmol/L (21.0-32.0); CREATININE - SERUM 7.1 mg/dL (0.6-1.3)
[2017-06-05 20:28] VITALS: BP 170/67
[2017-06-06 01:41] VITALS: BP 159/65
[2017-06-06 05:16] VITALS: BP 159/57
[2017-06-06 06:41] LABS: BASOPHILS 0.1 % (0-2); HEMATOCRIT 29.6 % (42.0-54.0); HEMOGLOBIN 9.2 g/dL (13.5-17.5); IMMATURE GRANULOCYTES 0.1 % (0-5); MCH 28.8 pg (26.0-34.0); MCHC 31.1 g/dL (31.0-37.0); MCV 92.8 fL (80.0-100.0); MEAN PLATELET VOLUME 10.8 fL (7.4-10.4); MONOCYTES 15.5 % (2-11); NEUTROPHILS 64.3 % (40-80); PLATELET COUNT 235 10x3/uL (130-400); RBC 3.19 10x6/uL (4.20-6.10); RDW 15.6 % (11.5-14.5); WBC 6.8 10x3/uL (4.8-10.8)
[2017-06-06 06:55] LABS: ANION GAP 22.5 mmol/L (8-16); CALCIUM 8.4 mg/dL (8.5-10.1); CARBON DIOXIDE 20.8 mmol/L (21.0-32.0); CREATININE - SERUM 8.8 mg/dL (0.6-1.3); PHOSPHOROUS 4.8 mg/dL (2.5-4.9); POTASSIUM - SERUM 4.3 mmol/L (3.5-5.1)
[2017-06-06 09:50] VITALS: BP 186/75
[2017-06-06] MEDS ORDERED: PLAVIX75 MG PO (10:43)
== END 2017-06-06 16:50 | DRG 248 ==
LOC: D.ER 00:52 → OBSVTIME 04:16 → D.M2 04:16 → D.EDHOLD 04:16 → D.M2 18:28
PROVIDERS: Family Medicine; Internal Medicine; Internal Medicine Interventional Cardiology
PROC: 5A1D70Z Performance of Urinary Filtration, Intermittent, Less than 6 Hours Per Day (ICD-10-PCS; principal; 2017-06-03)
PROC: 4A023N7 Measurement of Cardiac Sampling and Pressure, Left Heart, Percutaneous Approach (ICD-10-PCS; 2017-06-05)
PROC: B2111ZZ Fluoroscopy of Multiple Coronary Arteries using Low Osmolar Contrast (ICD-10-PCS; 2017-06-05)
PROC: B2151ZZ Fluoroscopy of Left Heart using Low Osmolar Contrast (ICD-10-PCS; 2017-06-05)
PROC: B3101ZZ Fluoroscopy of Thoracic Aorta using Low Osmolar Contrast (ICD-10-PCS; 2017-06-05)
PROC: 02703DZ Dilation of Coronary Artery, One Artery with Intraluminal Device, Percutaneous Approach (ICD-10-PCS; 2017-06-05 11:00)
PROC: B240ZZ3 Ultrasonography of Single Coronary Artery, Intravascular (ICD-10-PCS; 2017-06-05 11:00)
DX: I25.119 Atherosclerotic heart disease of native coronary artery with unspecified angina pectoris (principal); N18.6 End stage renal disease; I12.0 Hypertensive chronic kidney disease with stage 5 chronic kidney disease or end stage renal disease; T82.855A Stenosis of coronary artery stent, initial encounter; Z95.5 Presence of coronary angioplasty implant and graft; E11.22 Type 2 diabetes mellitus with diabetic chronic kidney disease; E11.51 Type 2 diabetes mellitus with diabetic peripheral angiopathy without gangrene; Z99.2 Dependence on renal dialysis; E78.5 Hyperlipidemia, unspecified; Y83.8 Other surgical procedures as the cause of abnormal reaction of the patient, or of later complication, without mention of misadventure at the time of the procedure; E11.40 Type 2 diabetes mellitus with diabetic neuropathy, unspecified; F41.9 Anxiety disorder, unspecified; G30.9 Alzheimer's disease, unspecified; F02.80 Dementia in other diseases classified elsewhere, unspecified severity, without behavioral disturbance, psychotic disturbance, mood disturbance, and anxiety; D64.9 Anemia, unspecified

== ENCOUNTER 2017-07-09 07:45 | Inpatient (IN) | payer MEDICARE ==
[2017-07-09] VITALS (7 sets, daily range): BP systolic 143–161; BP diastolic 73–87; BMI 20.1
[~2017-07-09] VITALS: Ht 177.8 cm; Wt 63.6 kg
--- NOTE | ~2017-07-09 | EC ---
PATIENT:BRITTON HEATH DATE OF SERVICE: 07/09/17 SEX: M MEDICAL RECORD: [id number] DATE OF : 37 LOCATION:D.M2 D.211 AGE OF PATIENT: 82 ADMISSION DATE: 07/09/17 REFERRING PHYSICIAN: INTERPRETING PHYSICIAN: RAHAT PERRY MD ECHOCARDIOGRAM REPORT ECHO CHARGES 4 ECHO COMPLETE Date: 07/10 CLINICAL DIAGNOSIS: SOB/FLUTTER ECHOCARDIOGRAPHIC MEASUREMENTS (adult normal given) AC root (d.<3.7cm) 3.0 cm LV Septum d (<1.2 cm> 1.1 cm Valve Excursion 1.4 cm LV Septum (systole) 1.3 cm Left Atria (s.<4.0cm> 5.2 cm LVPW d(<1.2cm) 1.2 cm RV (d.<2.3cm) 2.2 cm LVPW (sytole) 1.7 cm LV diastole(<5.6CM) 5.5 cm MV E-F(>70mm/sec) cm LV systole 3.3 cm LVOT Diameter 1.6 cm MV exc.(>10mm) cm Est.ejection fraction (50-75%) % DOPPLER: LVIT cm/sec A 52.0 cm/sec E 135 cm/sec LA cm/sec RVSP 60.0 mmHg LVOT 95.0 cm/sec AOP1/2T 394.0m/s Asc. Ao 165 cm/sec RVOT 60.0 cm/sec RA cm/sec PA 72.0 cm/sec AV Gradient Peak 11.0 mmHg AV Mean 4.5 mmHg AV Area 1.3 cm MV Gradient Peak 9.2 mmHg MV Mean 2.4 mmHg MV Area cm COMMENTS: Buttonhole Maker Hand: Sanjana SHINOE Green Building Design Specialist: 1 Dr. Perry TAPE# PACS Pericardial Effusion N DATE OF SERVICE: ECHOCARDIOGRAM FINDINGS: 1. Left ventricular chamber size is within normal limits. Left ventricular systolic function is mildly depressed. Overall ejection fraction 40%. 2. Left atrium is enlarged at 5.2 cm. Right atrium and right ventricle chamber sizes are mildly dilated as well. 3. 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 ECHOCARDIOGRAM REPORT [id number] BRITTON HEATH 4. Valvular structures have normal structure and motion. 5. Doppler interrogation reveals mild aortic insufficiency, mild mitral regurgitation, moderate tricuspid regurgitation, no other valvular insufficiency or stenosis. Pulmonary systolic pressure is estimated 60 mmHg. 6. No evidence of pericardial effusion or left ventricular thrombus. TRANSINT:[id number] Voice Confirmation ID: [id number] DOCUMENT ID: [id number] RAHAT PERRY MD at 0956 CC: [id number] DICTATION DATE: 07/10/17 1214 COMPUTER AIDED DRAFTER: 07/10/17 1443 DIS IN 07/12/17 [address] [place] [address]
--- NOTE | ~2017-07-09 | CN ---
PATIENT NAME:BRITTON HEATH MEDICAL RECORD: [id number] : 37 LOCATION:D. D.2115 ADMIT DATE: 07/09/17 ACCOUNT: [id number] CONSULTING PHYSICIAN: RAHAT VELAZCO MD REFERRING PHYSICIAN: ASHWIN MYRICK DO DATE OF CONSULTATION: 07/10/2017 DIAGNOSES: 1. Paroxysmal atrial fibrillation. 2. Pneumonia. 3. Shortness of breath, dyspnea on exertion. 4. Coronary artery disease. 5. Peripheral vascular disease. 6. Hypertension. 7. Hyperlipidemia. 8. End-stage renal failure. HISTORY OF PRESENT ILLNESS: This is a gentleman well known to us with a history of coronary artery disease and peripheral vascular disease, who presents with pneumonia, shortness of breath, has had episodes of atrial fibrillation. He was started on Cardizem and he has had no further atrial fibrillation. He is not taking p.o. secondary to BiPAP. PHYSICAL EXAMINATION: GENERAL APPEARANCE: Well-nourished, well-developed, appears stated age. Level of distress, comfortable. PSYCHIATRIC: Mental status, alert, normal affect. Orientation, oriented to time, place and person. EYES: Lids and conjunctiva, noninjected. No discharge, no pallor. ENT: Lips, teeth, gums, normal dentition. Oropharynx, no cyanosis, no pallor. NECK: Carotid arteries, bilateral normal upstroke, no bruits, no thrills. JUGULAR VEINS: No jugular venous pressure or distention. CERVICAL LYMPH NODES: Nontender, nonenlarged. THYROID: Not enlarged. Nontender. No nodules. LUNGS: Respiratory effort, unlabored. CHEST: Normal curvature. No thoracic deformity. No chest wall tenderness. Percussion, resonant. Auscultation, clear. No wheezes, no rales, no rhonchi. CARDIOVASCULAR: Precordial exam, nondisplaced. No heaves or pericardial thrills. Rate and rhythm, regular. Heart sounds, normal S1, normal S2. No S3, no gallop, no rub. Systolic murmur, not heard. Diastolic murmur, not heard. EXTREMITIES: No cyanosis, no edema. Peripheral pulses, full and equal in all extremities, except as noted. No bruits appreciated. ABDOMEN: Soft, nondistended. Normal aorta. No bruit. Nontender. No masses. Liver, nontender, no hepatomegaly. Spleen, nontender, no splenomegaly. MUSCULOSKELETAL: No joint tenderness. No joint swelling. No erythema. NEUROLOGICAL: Normal gait, normal strength, normal tone. SKIN: Warm and dry. OVERALL IMPRESSION: Atrial fibrillation, treated with IV Cardizem. At this time, we will continue the IV Cardizem. When he takes p.o., we will change him to p.o. sotalol. At this time, no other cardiac workup treatment is necessary. TRANSINT:[id number] Voice Confirmation ID: [id number] DOCUMENT ID: [id number] CONSULT REPORT [id number] BRITTON HEATH JEFFREY MD at 0956 CC: [id number] DICTATION DATE: 07/10/17 0842 PEDIATRIC PSYCHIATRIST: 07/10/17 1321 DIS IN 07/12/17 [place] [id number] [place] [address]
[~2017-07-09 07:45] MED LIST changes: +PRED-FORTE 1% OP5 ML EACH EYE; +TRAZODONE HCL50 MG PO; +TRUSOPT 2 % OPT10 ML LEFT EYE
[2017-07-09 08:56] LABS: BASOPHILS 0.2 % (0-2); EOSINOPHILS 2.8 % (0-7); HEMATOCRIT 29.7 % (42.0-54.0); HEMOGLOBIN 9.1 g/dL (13.5-17.5); IMMATURE GRANULOCYTES 0.2 % (0-5); MCHC 30.6 g/dL (31.0-37.0); MCV 94.6 fL (80.0-100.0); MEAN PLATELET VOLUME 10.4 fL (7.4-10.4); MONOCYTES 15.7 % (2-11); NEUTROPHILS 64.1 % (40-80); PLATELET COUNT 213 10x3/uL (130-400); RBC 3.14 10x6/uL (4.20-6.10); WBC 5.8 10x3/uL (4.8-10.8)
[2017-07-09 09:03] LABS: INR 1.1 (0.85-1.17); PROTIME 13.8 SECONDS (11.6-15.0)
[2017-07-09 09:04] LABS: APTT 30.7 SECONDS (22.8-39.4)
[2017-07-09 09:06] LABS: D-DIMER-QUANTITATIVE 0.84 ug/mLFEU (0.20-0.54)
[2017-07-09 09:11] LABS: ALBUMIN 3.1 g/dL (3.4-5.0); ALKALINE PHOSPHATASE 38 U/L (46-116); ALT (SGPT) 15 U/L (10-68); BILIRUBIN - TOTAL 0.37 mg/dL (0.2-1.3); CALC OSMOLALITY 285 mosm/kg (275-300); CALCIUM 8.6 mg/dL (8.5-10.1); CARBON DIOXIDE 30.2 mmol/L (21.0-32.0); CHLORIDE - SERUM 106 mmol/L (98-107); CREATININE - SERUM 5.6 mg/dL (0.6-1.3); GLUCOSE 89 mg/dL (74-106); POTASSIUM - SERUM 3.6 mmol/L (3.5-5.1); PROTEIN - SERUM 7.3 g/dL (6.4-8.2); SODIUM 144 mmol/L (136-145); UREA NITROGEN 13 mg/dL (7-18); eGFR NON AFRICAN AMERICAN 10 mL/min (90-120)
[2017-07-09 09:20] LABS: CKMB 0.8 U/L (0.0-3.6); CREATINE KINASE 46 UL (21-232)
[2017-07-09] MEDS ORDERED: ATIVAN0.5 MG PO (17:07)
[2017-07-09] MEDS ORDERED: ISOPTO ATROPINE5 ML RIGHT EYE (17:08)
[2017-07-09] MEDS ORDERED: COMBIGAN OPHT DR5 ML LEFT EYE (17:09)
[2017-07-09] MEDS ORDERED: CYCLOBENZAPRINE5 MG PO ×2 (17:10→17:11)
[2017-07-09] MEDS ORDERED: FLORANEX / LACT1 TAB PO (17:11)
[2017-07-09] MEDS ORDERED: GUAIFENESI100 MG/5 M PO (17:12)
[2017-07-09] MEDS ORDERED: HYDRALAZINE HCL25 MG PO (17:13)
[2017-07-09] MEDS ORDERED: ISOSORBIDE DINI20 MG PO (17:14)
[2017-07-09] MEDS ORDERED: XALATAN 0.0052.5 ML LEFT EYE (17:15)
[2017-07-09] MEDS ORDERED: MOBIC7.5 MG PO (17:15)
[2017-07-09] MEDS ORDERED: TOPROL XL100 MG PO (17:16)
[2017-07-09] MEDS ORDERED: HYDROCODON-ACE1 EAC7 PO (17:17)
[2017-07-09] MEDS ORDERED: ZOLOFT50 MG PO (17:18)
[2017-07-09] MEDS ORDERED: PRED FORTE5 ML RIGHT EYE (17:18)
[2017-07-09] MEDS ORDERED: ACETAMINOPHEN325 MG PO (17:19)
[2017-07-09] MEDS ORDERED: VOLTAREN100 GM TOPICAL (17:19)
[2017-07-09 20:14] LABS: CKMB 0.8 U/L (0.0-3.6); TROPONIN-I 0.051 ng/mL (0.000-0.060)
[2017-07-10] VITALS (24 sets, daily range): BP systolic 149–203; BP diastolic 69–108; Ht 177.8 cm; Wt 63.6 kg
[2017-07-10 05:02] LABS: BASOPHILS 0 % (0-2); EOSINOPHILS 0.5 % (0-7); HEMOGLOBIN 9.6 g/dL (13.5-17.5); IMMATURE GRANULOCYTES 0.1 % (0-5); LYMPHOCYTES 15.1 % (15-50); MCH 28.8 pg (26.0-34.0); MCV 93.1 fL (80.0-100.0); MEAN PLATELET VOLUME 10.4 fL (7.4-10.4); NEUTROPHILS 71.3 % (40-80); PLATELET COUNT 228 10x3/uL (130-400); RBC 3.33 10x6/uL (4.20-6.10); RDW 15.8 % (11.5-14.5)
[2017-07-10 05:07] LABS: WBC 7.3 10x3/uL (4.8-10.8)
[2017-07-10 05:54] LABS: ALBUMIN 3.2 g/dL (3.4-5.0); ALKALINE PHOSPHATASE 37 U/L (46-116); ALT (SGPT) 15 U/L (10-68); CALCIUM 8.6 mg/dL (8.5-10.1); CARBON DIOXIDE 26.5 mmol/L (21.0-32.0); CHLORIDE - SERUM 106 mmol/L (98-107); CKMB 1.7 U/L (0.0-3.6); GLUCOSE 91 mg/dL (74-106); MAGNESIUM - SERUM 2.1 mg/dL (1.8-2.4); PHOSPHOROUS 5.4 mg/dL (2.5-4.9); POTASSIUM - SERUM 4.1 mmol/L (3.5-5.1); PROTEIN - SERUM 7.4 g/dL (6.4-8.2); SODIUM 144 mmol/L (136-145)
[2017-07-10 06:06] LABS: CALC OSMOLALITY 290 mosm/kg (275-300); CREATININE - SERUM 7.3 mg/dL (0.6-1.3); UREA NITROGEN 23 mg/dL (7-18); eGFR NON AFRICAN AMERICAN 8 mL/min (90-120)
[2017-07-10 06:08] LABS: TROPONIN-I 0.239 ng/mL (0.000-0.060)
[2017-07-10 10:31] LABS: CKMB 1.7 U/L (0.0-3.6)
[2017-07-10 10:34] LABS: TROPONIN-I 0.227 ng/mL (0.000-0.060)
[2017-07-10 16:23] LABS: CKMB 1.6 U/L (0.0-3.6)
[2017-07-10 16:30] LABS: TROPONIN-I 0.199 ng/mL (0.000-0.060)
[2017-07-10 22:59] LABS: CKMB 1.6 U/L (0.0-3.6)
[2017-07-10 23:03] LABS: TROPONIN-I 0.144 ng/mL (0.000-0.060)
[2017-07-11] VITALS (11 sets, daily range): BP systolic 110–171; BP diastolic 58–91
[2017-07-11 05:14] LABS: BASOPHILS 0.1 % (0-2); EOSINOPHILS 1.6 % (0-7); HEMATOCRIT 31.7 % (42.0-54.0); HEMOGLOBIN 9.9 g/dL (13.5-17.5); IMMATURE GRANULOCYTES 0.3 % (0-5); LYMPHOCYTES 14.3 % (15-50); MCH 29.1 pg (26.0-34.0); MCHC 31.2 g/dL (31.0-37.0); MCV 93.2 fL (80.0-100.0); MONOCYTES 13.7 % (2-11); PLATELET COUNT 226 10x3/uL (130-400); RDW 15.5 % (11.5-14.5); WBC 7.4 10x3/uL (4.8-10.8)
[2017-07-11 05:48] LABS: ANION GAP 15.9 mmol/L (8-16); CALCIUM 8.6 mg/dL (8.5-10.1); CARBON DIOXIDE 28.4 mmol/L (21.0-32.0); CREATININE - SERUM 6.8 mg/dL (0.6-1.3); PHOSPHOROUS 4.1 mg/dL (2.5-4.9)
[2017-07-11 06:04] LABS: POTASSIUM - SERUM 3.3 mmol/L (3.5-5.1)
[2017-07-12] VITALS: BP 137/60
[2017-07-12 04:30] VITALS: BP 171/79
[2017-07-12 05:29] LABS: BASOPHILS 0.2 % (0-2); EOSINOPHILS 2.9 % (0-7); HEMATOCRIT 29.2 % (42.0-54.0); HEMOGLOBIN 8.8 g/dL (13.5-17.5); IMMATURE GRANULOCYTES 0.2 % (0-5); LYMPHOCYTES 18.6 % (15-50); MCH 28.2 pg (26.0-34.0); MCHC 30.1 g/dL (31.0-37.0); MCV 93.6 fL (80.0-100.0); MEAN PLATELET VOLUME 11.3 fL (7.4-10.4); MONOCYTES 14.9 % (2-11); NEUTROPHILS 63.2 % (40-80); PLATELET COUNT 211 10x3/uL (130-400); RBC 3.12 10x6/uL (4.20-6.10); RDW 15.7 % (11.5-14.5); WBC 6.5 10x3/uL (4.8-10.8)
[2017-07-12 05:53] LABS: ANION GAP 13.1 mmol/L (8-16); CALCIUM 8.6 mg/dL (8.5-10.1); CREATININE - SERUM 8.4 mg/dL (0.6-1.3); PHOSPHOROUS 3.7 mg/dL (2.5-4.9)
[2017-07-12 05:54] LABS: POTASSIUM - SERUM 4.1 mmol/L (3.5-5.1)
[2017-07-12 08:16] VITALS: BP 166/106
[2017-07-12] MEDS ORDERED: PEPCID20 MG PO (11:33)
[2017-07-12] MEDS ORDERED: OMNICEF300 MG PO (12:19)
[2017-07-12] MEDS ORDERED: ZITHROMAX 500M500 MG IV (12:19)
[2017-07-12] MEDS ORDERED: ZITHROMAX500 MG PO (12:30)
[2017-07-17 04:43] LABS: IMMUNOGLOBULIN E 91 IU/mL (0-100)
== END 2017-07-12 15:33 | DRG 177 ==
LOC: D.ER 07:45 → D.ICU 10:30 → D.M2 10:30 → D.EDHOLD 10:30 → D.M2 14:11 → D.ICU 18:51 → D.M2 07-11 13:37
PROVIDERS: Family Medicine; Internal Medicine Interventional Cardiology; Internal Medicine Nephrology; Internal Medicine Pulmonary Disease
PROC: 5A1D70Z Performance of Urinary Filtration, Intermittent, Less than 6 Hours Per Day (ICD-10-PCS; principal; 2017-07-10)
DX: J69.0 Pneumonitis due to inhalation of food and vomit (principal); I50.33 Acute on chronic diastolic (congestive) heart failure; N18.6 End stage renal disease; J96.01 Acute respiratory failure with hypoxia; I13.2 Hypertensive heart and chronic kidney disease with heart failure and with stage 5 chronic kidney disease, or end stage renal disease; J45.901 Unspecified asthma with (acute) exacerbation; J98.11 Atelectasis; J90 Pleural effusion, not elsewhere classified; C64.9 Malignant neoplasm of unspecified kidney, except renal pelvis; J18.9 Pneumonia, unspecified organism; Z99.2 Dependence on renal dialysis; Z66 Do not resuscitate; I48.0 Paroxysmal atrial fibrillation; R00.0 Tachycardia, unspecified; I16.0 Hypertensive urgency; I08.3 Combined rheumatic disorders of mitral, aortic and tricuspid valves; G30.9 Alzheimer's disease, unspecified; F02.80 Dementia in other diseases classified elsewhere, unspecified severity, without behavioral disturbance, psychotic disturbance, mood disturbance, and anxiety; F41.8 Other specified anxiety disorders; H91.90 Unspecified hearing loss, unspecified ear; D64.9 Anemia, unspecified; E78.5 Hyperlipidemia, unspecified; I25.10 Atherosclerotic heart disease of native coronary artery without angina pectoris; G62.9 Polyneuropathy, unspecified; C61 Malignant neoplasm of prostate

== ENCOUNTER 2017-12-23 19:31 | Observation (INO) | payer MEDICARE ==
[~2017-12-23] VITALS: Ht 177.8 cm; Wt 57.3 kg
[~2017-12-23 19:31] MED LIST changes: +COMBIGAN OPHT DR5 ML LEFT EYE; +CYCLOBENZAPRINE5 MG PO; +FLORANEX / LACT1 TAB PO; +GUAIFENESI100 MG/5 M PO; +HYDROCODON-ACE1 EAC7 PO; +ISOPTO ATROPINE5 ML RIGHT EYE; +ISOSORBIDE DINI20 MG PO; +MOBIC7.5 MG PO; +OMNICEF300 MG PO; +PRED FORTE5 ML RIGHT EYE; +VOLTAREN100 GM TOPICAL; +XALATAN 0.0052.5 ML LEFT EYE; +ZITHROMAX 500M500 MG IV; +ZITHROMAX500 MG PO
[2017-12-23] MEDS ORDERED: TOPROL XL100 MG (19:45)
[2017-12-23] MEDS ORDERED: PLAVIX75 MG (19:45)
[2017-12-23] MEDS ORDERED: COMBIVENT RESPIM4 GM INH (19:46)
[2017-12-23 20:12] LABS: BASOPHILS 0.2 % (0-2); EOSINOPHILS 1.7 % (0-7); HEMATOCRIT 45.3 % (42.0-54.0); HEMOGLOBIN 14.5 g/dL (13.5-17.5); IMMATURE GRANULOCYTES 0.5 % (0-5); LYMPHOCYTES 15.8 % (15-50); MEAN PLATELET VOLUME 11.2 fL (7.4-10.4); NEUTROPHILS 66.8 % (40-80); PLATELET COUNT 176 10x3/uL (130-400); RBC 4.53 10x6/uL (4.20-6.10); RDW 16.1 % (11.5-14.5); WBC 6.4 10x3/uL (4.8-10.8)
[2017-12-23 20:45] LABS: APTT 27.8 SECONDS (22.8-39.4); INR 1.04 (0.85-1.17); PROTIME 13.2 SECONDS (11.6-15.0)
[2017-12-23 20:48] LABS: BILIRUBIN - TOTAL 0.4 mg/dL (0.2-1.3); CARBON DIOXIDE 24.4 mmol/L (21.0-32.0)
[2017-12-23 21:00] VITALS: BP 149/66
[2017-12-23 21:06] LABS: CALCIUM 8.5 mg/dL (8.5-10.1); CREATININE - SERUM 6.5 mg/dL (0.6-1.3)
[2017-12-23 21:07] LABS: ANION GAP 18.3 mmol/L (8-16); POTASSIUM - SERUM 5.7 mmol/L (3.5-5.1)
[2017-12-23 22:00] VITALS: BP 143/61
[2017-12-24 00:47] VITALS: BP 163/68
[2017-12-24 00:51] VITALS: Ht 177.8 cm; Wt 57.3 kg
[2017-12-24 05:23] VITALS: BP 136/70
[2017-12-24 06:06] LABS: BASOPHILS 0.3 % (0-2); EOSINOPHILS 1.8 % (0-7); HEMATOCRIT 38.5 % (42.0-54.0); HEMOGLOBIN 12.1 g/dL (13.5-17.5); IMMATURE GRANULOCYTES 0.1 % (0-5); MCH 31.5 pg (26.0-34.0); MCHC 31.4 g/dL (31.0-37.0); MCV 100.3 fL (80.0-100.0); MEAN PLATELET VOLUME 11.7 fL (7.4-10.4); MONOCYTES 12.4 % (2-11); NEUTROPHILS 72.4 % (40-80); PLATELET COUNT 190 10x3/uL (130-400); RBC 3.84 10x6/uL (4.20-6.10); RDW 16.1 % (11.5-14.5); WBC 7.4 10x3/uL (4.8-10.8)
[2017-12-24 06:25] LABS: ANION GAP 22.4 mmol/L (8-16); CALCIUM 8.3 mg/dL (8.5-10.1); CARBON DIOXIDE 20.9 mmol/L (21.0-32.0); CREATININE - SERUM 7.4 mg/dL (0.6-1.3); MAGNESIUM - SERUM 1.9 mg/dL (1.8-2.4); PHOSPHOROUS 5.5 mg/dL (2.5-4.9)
[2017-12-24 06:26] LABS: POTASSIUM - SERUM 4.3 mmol/L (3.5-5.1)
[2017-12-24 08:30] VITALS: BP 139/76
[2017-12-24 11:30] VITALS: BP 177/78
[2017-12-24 15:30] VITALS: BP 153/67
[2017-12-24 22:50] VITALS: BP 167/74
[2017-12-25 01:58] VITALS: BP 149/65
[2017-12-25 06:15] VITALS: BP 146/68
[2017-12-25 07:56] VITALS: BP 160/50
== END 2017-12-25 08:35 ==
LOC: D.ER 19:31 → D.M2 22:56 → OBSVTIME 22:56 → D.M2 12-25 08:35
PROVIDERS: Family Medicine
DX: T82.838A Hemorrhage due to vascular prosthetic devices, implants and grafts, initial encounter (principal); Y83.8 Other surgical procedures as the cause of abnormal reaction of the patient, or of later complication, without mention of misadventure at the time of the procedure; I12.0 Hypertensive chronic kidney disease with stage 5 chronic kidney disease or end stage renal disease; N18.6 End stage renal disease; Z99.2 Dependence on renal dialysis; G62.9 Polyneuropathy, unspecified; I25.10 Atherosclerotic heart disease of native coronary artery without angina pectoris; Z95.1 Presence of aortocoronary bypass graft; G30.9 Alzheimer's disease, unspecified; F02.80 Dementia in other diseases classified elsewhere, unspecified severity, without behavioral disturbance, psychotic disturbance, mood disturbance, and anxiety; F32.9 Major depressive disorder, single episode, unspecified; F41.9 Anxiety disorder, unspecified

== ENCOUNTER 2019-02-22 20:23 | Inpatient (IN) | payer MEDICARE ==
[~2019-02-22] VITALS: Ht 177.8 cm; Wt 55.9 kg
[~2019-02-22 20:23] MED LIST changes: +PLAVIX75 MG; +TOPROL XL100 MG
[2019-02-22] MEDS ORDERED: COLACE100 MG (20:41)
[2019-02-22] MEDS ORDERED: LOPERAMIDE HCL2 MG PO (20:45)
[2019-02-22] MEDS ORDERED: ALBUTEROL SULF8.5 GM INH (20:50)
[2019-02-22 21:00] VITALS: BP 177/79
[2019-02-22 21:34] LABS: APTT 28.5 SECONDS (22.8-39.4); INR 1.15 (0.85-1.17); PROTIME 14.2 SECONDS (11.6-15.0)
[2019-02-22 21:35] LABS: BASOPHILS 0.1 % (0-2); EOSINOPHILS 1.2 % (0-7); HEMOGLOBIN 10.9 g/dL (13.5-17.5); IMMATURE GRANULOCYTES 0.1 % (0-5); LYMPHOCYTES 14.6 % (15-50); MCHC 30.3 g/dL (31.0-37.0); MCV 95.7 fL (80.0-100.0); MEAN PLATELET VOLUME 11.2 fL (7.4-10.4); MONOCYTES 10.8 % (2-11); NEUTROPHILS 73.2 % (40-80); RBC 3.76 10x6/uL (4.20-6.10); RDW 16.1 % (11.5-14.5); WBC 9.9 10x3/uL (4.8-10.8)
[2019-02-22 21:42] LABS: ANION GAP 14.7 mmol/L (8-16); CALCIUM 10.1 mg/dL (8.5-10.1); CARBON DIOXIDE 28.4 mmol/L (21.0-32.0); CREATININE - SERUM 10.1 mg/dL (0.6-1.3)
[2019-02-22 21:47] LABS: POTASSIUM - SERUM 6.1 mmol/L (3.5-5.1)
[2019-02-22 21:49] LABS: PLATELET COUNT 308 10x3/uL (130-400)
[2019-02-22 22:00] VITALS: BP 189/74
[2019-02-22 22:28] LABS: ALBUMIN 3.8 g/dL (3.4-5.0); BILIRUBIN - TOTAL 0.46 mg/dL (0.2-1.3); CKMB 1.3 U/L (0.0-3.6); TROPONIN-I 0.044 ng/mL (0.000-0.060)
[2019-02-22 22:57] LABS: MAGNESIUM - SERUM 2.3 mg/dL (1.8-2.4); THYROID STIMULATING HORMONE 3.17 uIU/mL (0.36-3.74)
[2019-02-22 23:00] VITALS: BP 184/67
--- NOTE | 2019-02-22 23:44 | NUR ---
REPORT OF ADMISSION CALLED TO TERRY CHERRY AT [facility].
[2019-02-23] MEDS ORDERED: ATIVAN0.5 MG PO (00:09)
[2019-02-23 01:15] VITALS: BP 102/60; BMI 19.1
[2019-02-23 04:26] VITALS: BP 197/84
[2019-02-23] MEDS ORDERED: RENVELA800 MG PO (07:52)
--- NOTE | 2019-02-23 08:35 | NUR ---
PT'S BP 206/91. SPOKE WITH TIMOTHY VICENTE AND SHE STATES TO ORDER CLONDIDINE 0.1 Q4HP SYSTOLIC GREATER THAN 170. I VERBALIZED UNDERSTANDING.
[2019-02-23 10:42] VITALS: BP 201/90
--- NOTE | 2019-02-23 11:09 | NUR ---
I have reviewed this patient and I concur with the Shift Assessment completed by the Licensed Practical Nurse today this shift.
[2019-02-23 12:00] VITALS: BP 194/72
--- NOTE | 2019-02-23 12:01 | NUR ---
REPORTED TO ME THAT PT'S BP IS 207/73. CHECKED MANUALLY BP IS 194/72. CALLED AND SPOKE WITH TIMOTHY VICENTE AND SHE STATES TO GIVE ONE MORE DOSE OF CLONIDINE.
[2019-02-23 13:34] VITALS: BP 207/73
[2019-02-23 13:45] VITALS: Ht 177.8 cm; Wt 55.9 kg
--- NOTE | 2019-02-23 18:44 | NUR ---
PT TAKEN TO DIALYSIS VIA WC.
--- NOTE | 2019-02-23 19:23 | NUR ---
PT CURRENTLY IN DIALYSIS.
--- NOTE | 2019-02-23 22:21 | NUR ---
PT IS DONE WITH DIALYSIS, RECIEVED REPORT FROM RACHEL, RACHEL STATED THAT SHE PULLED OFF 3 LITERS AND VITALS ARE STABLE. ANCA MABRY ON HER WAY WITH TO OPERATION AGENT PT.
[2019-02-24 00:30] VITALS: BP 167/74
--- NOTE | 2019-02-24 01:11 | NUR ---
RESTING WITH EYES CLOSED, RESPERATIONS EVEN, NO S/S DISTRESS NOTED.
[2019-02-24 04:30] VITALS: BP 122/55
--- NOTE | 2019-02-24 07:19 | NUR ---
AM ROUNDS- PT RESTING COMFORTABLY IN BED, RESP EVEN AND NONLABORED ON 2L NC. RT AC IV SL. LT AV FISTULA WITH BRUIE AND THRILL NOTED. PT DENIES ANY NEEDS AT THIS TIME. CALL [facility] IN REACH, NAD NOTED, WILL CONTINUE PLAN OF CARE.
--- NOTE | 2019-02-24 09:19 | NUR ---
AM MEDS GIVEN AT THIS TIME. PT DENIES ANY NEEDS AT THIS TIME. [facility], NAD NOTED,W ILL CONTINUE TO MONITOR.
[2019-02-24 09:24] VITALS: BP 140/62
--- NOTE | 2019-02-24 12:55 | NUR ---
PT RESTING COMFORTABLY IN BED, WITH EYES CLOSED, EASILY AROUSES TO VOICE. PT DENIES ANY NEEDS AT THIS TIME. CALL [facility] IN REACH, NAD NOTED, WILL CONTINUE TO MONITOR.
[2019-02-24 13:56] VITALS: BP 96/41
--- NOTE | 2019-02-24 15:06 | MORECARE ---
CASE MANAGEMENT DISCHARGE SUMMARY PATIENT: BRITTON HEATH UNIT: [id number] ADM DATE: 02/22/19 AGE: 83 : 36 SEX: M ROOM/BED: D.6098 AUTHOR: HAYDEE PEOPLES PHYSICIAN: REFERRING PHYSICIAN: MICHELLE RICHARDS MD DATE OF SERVICE: 02/24/19 Discharge Plan Patient Name: BRITTON HEATH [facility] : 1935 Planned Disposition: Nursing Facility [facility] Anticipated Discharge Date: 02/25/19 Discharge Date: Expected LOS: 3 Initial Reviewer: [email or web address] Initial Review Date: 02/24/2019 Generated: 02/24/19 4:06 pm Patient Name: BRITTON HEATH Page [phone] at 1506 All edits/amendments must be made on the electronic document DICTATION DATE: 02/24/19 1506 WOOD FENCE INSTALLER: MAXIMINO 02/24/19 1506 RPT#: [id number] DC DATE: STATUS: ADM IN [facility] [address] [place] [address] END OF REPORT
--- NOTE | 2019-02-24 15:15 | MORECARE ---
CASE MANAGEMENT DISCHARGE SUMMARY PATIENT: BRITTON HEATH UNIT: [id number] ADM DATE: 02/22/19 AGE: 83 : 36 SEX: M ROOM/BED: D.1818 AUTHOR: HAYDEE PEOPLES PHYSICIAN: REFERRING PHYSICIAN: MICHELLE RICHARDS MD DATE OF SERVICE: 02/24/19 Discharge Plan Patient Name: BRITTON HEATH Facility: [facility]:[place] : 1935 Planned Disposition: Nursing Facility [facility] Cert Anticipated Discharge Date: 02/25/19 Discharge Date: Expected LOS: 3 Initial Reviewer: [email or web address] Initial Review Date: 02/24/2019 Generated: 02/24/19 4:14 pm DCPIA - Discharge Planning Initial Assessment Updated by [email or web address]: Oswaldo Chnog on 02/24/19 3:12 pm * Is the patient Alert and Oriented? Yes * How many steps to enter\exit or inside your home? NONE * PCP DR. COULTER * Pharmacy [facility] * Preadmission Environment Patent Legal Assistant Acute Care Facility * Facility Name [facility] * ADLs Partial Dependent * Partial ADLs (Assistance needed) Ambulation Bathing Medication Management * Equipment Other * Other Equipment ALL MEDICAL EQUIPMENT PROVIDED BY FACILITY * List name and contact numbers for known caregivers / representatives who currently or will assist patient after discharge: CODY SILVEIRA, * Verbal permission to speak to the caregivers and representatives has been obtained from the patient. N/A * Community resources currently utilized Other * Please name any agencies selected above. OUTPATIENT DIALYSIS, MWF, 0645, MEDICAID TRANSPORT ARRANGED BY [facility]. * Additional services required to return to the preadmission environment? No * Can the patient safely return to the preadmission environment? Yes * Has this patient been hospitalized within the prior 30 days at any hospital? No Last DP export: 02/24/19 2:06 p Patient Name: BRITTON HEATH Page 57019 at 1510 All edits/amendments must be made on the electronic document DICTATION DATE: 02/24/191513 SALESPERSON FLOWERS: MAXIMINO 02/24/191513 RPT#: [id number] DC DATE: STATUS: ADM IN [facility] [address] [place] [address] END OF REPORT
--- NOTE | 2019-02-24 15:22 | MORECARE ---
CASE MANAGEMENT DISCHARGE SUMMARY PATIENT: BRITTON HEATH UNIT: [id number] ADM DATE: 02/22/19 AGE: 83 : 36 SEX: M ROOM/BED: D.8528 AUTHOR: HAYDEE PEOPLES PHYSICIAN: REFERRING PHYSICIAN: MICHELLE RICHARDS MD DATE OF SERVICE: 02/24/19 Discharge Plan Patient Name: BRITTON HEATH Facility: [facility]:[place] : 1935 Planned Disposition: Nursing Facility [facility] Cert Anticipated Discharge Date: 02/25/19 Discharge Date: Expected LOS: 3 Initial Reviewer: [email or web address] Initial Review Date: 02/24/2019 Generated: 02/24/19 4:22 pm DCPIA - Discharge Planning Initial Assessment Updated by [email or web address]: Oswaldo Chong on 02/24/19 3:12 pm * Is the patient Alert and Oriented? Yes * How many steps to enter\exit or inside your home? NONE * PCP DR. OCULTER * Pharmacy [facility] * Preadmission Environment Investigator Internal Affairs Acute Care Facility * Facility Name [facility] * ADLs Partial Dependent * Partial ADLs (Assistance needed) Ambulation Bathing Medication Management * Equipment Other * Other Equipment ALL MEDICAL EQUIPMENT PROVIDED BY FACILITY * List name and contact numbers for known caregivers / representatives who currently or will assist patient after discharge: CODY SILVEIRA, * Verbal permission to speak to the caregivers and representatives has been obtained from the patient. N/A * Community resources currently utilized Other * Please name any agencies selected above. OUTPATIENT DIALYSIS, MWF, 0645, MEDICAID TRANSPORT ARRANGED BY [facility]. * Additional services required to return to the preadmission environment? No * Can the patient safely return to the preadmission environment? Yes * Has this patient been hospitalized within the prior 30 days at any hospital? No External Providers External Provider: [facility] Next Contact Date: 02/24/2019 Service Request Date: Service Type: Resolution: Reviewer: Comments: Last DP export: 02/24/19 2:15 p Patient Name: BRITTON HEATH Page [phone] at 1522 All edits/amendments must be made on the electronic document DICTATION DATE: 02/24/191521 AIRPLANE CLEANER: MAXIMINO 02/24/191521 RPT#: [id number] [place] DATE: STATUS: ADM IN [facility] [address] [place] [address] END OF REPORT
--- NOTE | 2019-02-24 15:40 | MORECARE ---
CASE MANAGEMENT DISCHARGE SUMMARY PATIENT: BRITTON HEATH UNIT: [id number] ADM DATE: 02/22/19 AGE: 83 : 36 SEX: M ROOM/BED: D.4533 AUTHOR: HAYDEE PEOPLES PHYSICIAN: REFERRING PHYSICIAN: MICHELLE KEITH MD DATE OF SERVICE: 02/24/19 Discharge Plan Patient Name: BRITTON HEATH Facility: [facility]:[place] : 1935 Planned Disposition: Nursing Facility [facility] Cert Anticipated Discharge Date: 02/25/19 Discharge Date: Expected LOS: 3 Initial Reviewer: [email or web address] Initial Review Date: 02/24/2019 Generated: 02/24/19 4:40 pm Comments DCP- Discharge Planning Updated by [email or web address]: Oswaldo Chong on 02/24/19 2:[address] Patient Name: BRITTON HEATH Admission Status: ER Accout number: [id number] Admission Date: 02-22-2019 : 1935 Admission Diagnosis:HYPERKALEMIA Attending: Michelle Keith Current LOS: 2 Anticipated DC Date: 02-25-2019 Planned Disposition: Nursing Facility [facility] Cert Primary Insurance: MEDICARE A & B PLANNED EXTERNAL PROVIDER: [facility], LONG TERM CARE MEDICAID BED Discharge Planning Comments: CM RECEIVED DISCHARGE PLANNING ORDER, MET WITH PT IN ROOM TO DISCUSS DISCHARGE PLANNING AND NEEDS. PT STILL LIVES AT [facility], REPORTS FEELING SAFE AND WILL RETURN THERE TOMORROW AT DISCHARGE. CHOICE SIGNED FOR [facility]. PT REPORTS HE STILL GOES TO DIALYSIS AT [place] ON MWF 0645AM SCHEDULE, [facility] ARRANGES TRANSPORT FOR HIM. PT REPORTS HE WILL NEED [facility] TO PICK HIM UP TOMORROW AFTER DIALYSIS HERE. IMPORTANT MESSAGE FROM MEDICARE PROVIDED AND EXPLAINED. CM NOTIFIED SHAHANA SANTIAGO, CLINICAL LIAISON FOR [facility], , NOTIFIED OF PLANNED DISCHARGE AFTER DIALYSIS TOMORROW. CM FAXED UPDATE TO [facility] AT [phone]. [facility] TO ACCEPT BACK FOR CONTINUED INSPECTOR BALANCE WHEEL MOTION CARE. FOR DISCHARGE, FAX DISCHARGE INFORMATION TO [facility] AT [phone]. NURSE REPORT TO BE CALLED TO [facility] AT [phone]. [facility] TO ARRANGE VAN TRANSPORTATION. Eap Specialist: Oswaldo Chong DCPIA - Discharge Planning Initial Assessment Updated by [id number]: Oswaldo Chong on 02/24/19 3:12 pm * Is the patient Alert and Oriented? Yes * How many steps to enter\exit or inside your home? NONE * PCP DR. COULTER * Pharmacy [facility] * Preadmission Environment [facility] * Facility Name [facility] * ADLs Partial Dependent * Partial ADLs (Assistance needed) Ambulation Bathing Medication Management * Equipment Other * Other Equipment ALL MEDICAL EQUIPMENT PROVIDED BY FACILITY * List name and contact numbers for known caregivers / representatives who currently or will assist patient after discharge: UNIQUE HEATH, SON, * Verbal permission to speak to the caregivers and representatives has been obtained from the patient. N/A * Community resources currently utilized Other * Please name any agencies selected above. OUTPATIENT DIALYSIS, MWF, 0645, MEDICAID TRANSPORT ARRANGED BY [facility]. * Additional services required to return to the preadmission environment? No * Can the patient safely return to the preadmission environment? Yes * Has this patient been hospitalized within the prior 30 days at any hospital? No Coverage Notice Reviewer: [email or web address] Isadora Chong Notice Issued Date-Time: 02/24/2019 14:50 Notice Type: IM Discharge Notice Notice Delivered To: Patient Relationship to Patient: Bobbin Doffer Name: Delivery Method: HAND - Hand Delivered Chelsy Days: Prior Verbal Notification: Recipient Understood Notice: Yes Recipient Signature: Yes Med Rec Note Co-signed by Attending: Coverage Notice Comment: Reviewer: [email or web address] Isadora Chong Notice Issued Date-Time: 02/24/2019 14:50 Notice Type: Patient Choice Letter Notice Delivered To: Patient Relationship to Patient: Bobbin Doffer Name: Delivery Method: HAND - Hand Delivered Chelsy Days: Prior Verbal Notification: Recipient Understood Notice: Yes Recipient Signature: Yes Med Rec Note Co-signed by Attending: Coverage Notice Comment: [facility] Last DP export: 02/24/19 2:22 p Patient Name: BRITTON HEATH Page 46795 at 1540 All edits/amendments must be made on the electronic document DICTATION DATE: 02/24/19 1540 DRY CLEANING CHECKER: MAXIMINO 02/24/19 1540 RPT#: [id number] DC DATE: STATUS: ADM IN [facility] [address] [facility] [place] [address] END OF REPORT
[2019-02-24 17:02] VITALS: BP 109/49
--- NOTE | 2019-02-24 19:00 | NUR ---
EVENING ROUNDS COMPLETE. PT SITTING UP IN BED, NO SIGNS OF DISTRESS. PT DENIES ANY PAIN OR NEEDS AT THIS TIME. CL IN REACH, BED IN LOWEST POSITION.
[2019-02-24 20:33] VITALS: BP 131/53
[2019-02-25 04:28] VITALS: BP 138/62
[2019-02-25 07:09] LABS: ANION GAP 13.5 mmol/L (8-16); CALCIUM 8.7 mg/dL (8.5-10.1); CREATININE - SERUM 9.3 mg/dL (0.6-1.3); PHOSPHOROUS 5.1 mg/dL (2.5-4.9); POTASSIUM - SERUM 4.5 mmol/L (3.5-5.1)
[2019-02-25 07:15] LABS: BASOPHILS 0.2 % (0-2); HEMATOCRIT 30.2 % (42.0-54.0); HEMOGLOBIN 9.2 g/dL (13.5-17.5); IMMATURE GRANULOCYTES 0.2 % (0-5); LYMPHOCYTES 15.3 % (15-50); MCH 28.8 pg (26.0-34.0); MCHC 30.5 g/dL (31.0-37.0); MCV 94.7 fL (80.0-100.0); MEAN PLATELET VOLUME 11.1 fL (7.4-10.4); MONOCYTES 12.8 % (2-11); NEUTROPHILS 67.5 % (40-80); RBC 3.19 10x6/uL (4.20-6.10); RDW 15.6 % (11.5-14.5); WBC 5.8 10x3/uL (4.8-10.8)
[2019-02-25 07:20] LABS: PLATELET COUNT 211 10x3/uL (130-400)
--- NOTE | 2019-02-25 08:54 | MORECARE ---
CASE MANAGEMENT DISCHARGE SUMMARY PATIENT: BRITTON HEATH UNIT: [id number] ADM DATE: 02/22/19 AGE: 83 : 36 SEX: M ROOM/BED: D.2128 AUTHOR: HAYDEE PEOPLES PHYSICIAN: REFERRING PHYSICIAN: MICHELLE KEITH MD DATE OF SERVICE: 02/25/19 Discharge Plan Patient Name: BRITTON HEATH Facility: [facility]:[place] : 1935 Planned Disposition: Nursing Facility [facility] Cert Anticipated Discharge Date: 02/25/19 Discharge Date: Expected LOS: 3 Initial Reviewer: [id number] Initial Review Date: 02/24/2019 Generated: 02/25/19 9:53 am Comments DCP- Discharge Planning Updated by [email or web address]: Oswaldo Chong on 02/25/19 7:[address] Patient Name: BRITTON HEATH Encounter No: [id number] : 1935 Primary Insurance: MEDICARE A & B Anticipated DC Date: 02-25-2019 Planned Disposition: Nursing Facility [facility] Cert External Planned Provider: [facility], LONG TERM CARE MEDICAID BED DCP follow-up note: CM RECEIVED DISCHARGE ORDERS, CALLED UNIQUE HEATH, SON, , LEFT MESSAGE REGARDING DISCHARGE TODAY WITH CM CALL BACK NUMBER FOR CONCERNS OR QUESTIONS. CM NOTIFIED SHAHANA OF [facility] OF DISCHARGE AFTER DAILYSIS TODAY AND NEED FOR OXYGEN DURING TRANSPORT. CM FAXED DISCHARGE INFORMATION TO [facility] VIA [employer] AT [phone]. NURSE REPORT TO BE CALLED TO [facility] AT [phone]. [facility] TO ARRANGE VAN TRANSPORTATION. Fitter Up: Oswaldo Chong DCP- Discharge Planning Updated by [email or web address]: Oswaldo Chong on 02/24/19 2:[address] Patient Name: BRITTON HEATH Admission Status: ER Accout number: [id number] Admission Date: 02-22-2019 : 1935 Admission Diagnosis:HYPERKALEMIA Attending: Michelle Keith Current LOS: 2 Anticipated DC Date: 02-25-2019 Planned Disposition: Nursing Facility [facility] Cert Primary Insurance: MEDICARE A & B PLANNED EXTERNAL PROVIDER: [facility], HALFWAY CARE MEDICAID BED Discharge Planning Comments: CM RECEIVED DISCHARGE PLANNING ORDER, MET WITH PT IN ROOM TO DISCUSS DISCHARGE PLANNING AND NEEDS. PT STILL LIVES AT [facility], REPORTS FEELING SAFE AND WILL RETURN THERE TOMORROW AT DISCHARGE. CHOICE SIGNED FOR [facility]. PT REPORTS HE STILL GOES TO DIALYSIS AT [place] ON MWF 0645AM SCHEDULE, [facility] ARRANGES TRANSPORT FOR HIM. PT REPORTS HE WILL NEED [facility] TO PICK HIM UP TOMORROW AFTER DIALYSIS HERE. IMPORTANT MESSAGE FROM MEDICARE PROVIDED AND EXPLAINED. CM NOTIFIED SHAHANA SANTIAGO, CLINICAL LIAISON FOR [facility], , NOTIFIED OF PLANNED DISCHARGE AFTER DIALYSIS TOMORROW. CM FAXED UPDATE TO [facility] AT [phone]. [facility] TO ACCEPT BACK FOR CONTINUED HALFWAY CARE. FOR DISCHARGE, FAX DISCHARGE INFORMATION TO [facility] AT [phone]. NURSE REPORT TO BE CALLED TO [facility] AT [phone]. [facility] TO ARRANGE VAN TRANSPORTATION. Fitter Up: Oswaldo Chong DCPIA - Discharge Planning Initial Assessment Updated by [id number]: Oswaldo Chong on 02/24/19 3:12 pm * Is the patient Alert and Oriented? Yes * How many steps to enter\exit or inside your home? NONE * PCP DR. COULTER * Pharmacy [facility] * Preadmission Environment [facility] Acute Care Facility * Facility Name [facility] * ADLs Partial Dependent * Partial ADLs (Assistance needed) Ambulation Bathing Medication Management * Equipment Other * Other Equipment ALL MEDICAL EQUIPMENT PROVIDED BY FACILITY * List name and contact numbers for known caregivers / representatives who currently or will assist patient after discharge: UNIQUE HEATH, SON, * Verbal permission to speak to the caregivers and representatives has been obtained from the patient. N/A * Community resources currently utilized Other * Please name any agencies selected above. OUTPATIENT DIALYSIS, MWF, 0645, MEDICAID TRANSPORT ARRANGED BY [facility]. * Additional services required to return to the preadmission environment? No * Can the patient safely return to the preadmission environment? Yes * Has this patient been hospitalized within the prior 30 days at any hospital? No Coverage Notice Reviewer: [id number] - Oswaldo Chong Notice Issued Date-Time: 02/24/2019 14:50 Notice Type: IM Discharge Notice Notice Delivered To: Patient Relationship to Patient: Stone And Concrete Washer Name: Delivery Method: HAND - Hand Delivered Chelsy Days: Prior Verbal Notification: Recipient Understood Notice: Yes Recipient Signature: Yes Med Rec Note Co-signed by Attending: Coverage Notice Comment: Reviewer: [id number] - Oswaldo Chong Notice Issued Date-Time: 02/24/2019 14:50 Notice Type: Patient Choice Letter Notice Delivered To: Patient Relationship to Patient: Stone And Concrete Washer Name: Delivery Method: HAND - Hand Delivered Chelsy Days: Prior Verbal Notification: Recipient Understood Notice: Yes Recipient Signature: Yes Med Rec Note Co-signed by Attending: Coverage Notice Comment: BARBIE Duran DP export: 02/24/19 2:40 p Patient Name: BRITTON HEATH Page [id number] at 0854 All edits/amendments must be made on the electronic document DICTATION DATE: 02/25/19852 SEWING TECHNIQUES DEMONSTRATOR: MAXIMINO 02/25/19852 RPT#: [id number] DC DATE: STATUS: ADM IN [facility] [address] [place] [address] END OF REPORT
[2019-02-25 08:56] VITALS: BP 149/62
[2019-02-25 12:20] VITALS: BP 132/62
--- NOTE | 2019-02-25 19:00 | NUR ---
EVENING ROUNDS COMPLETE, PT IN DIALYSIS AT THIS TIME.
[2019-02-25 20:00] VITALS: BP 163/62
[2019-02-25 23:30] VITALS: BP 147/62
[2019-02-26 04:00] VITALS: BP 154/62
--- NOTE | 2019-02-26 07:36 | DS ---
PATIENT:BRITTON HEATH :[birth year] MEDICAL RECORD: [id number] DISCHARGE SUMMARY ADMISSION DATE: 02/22/19 DISCHARGE DATE: HISTORY: Mr. Heath is an 83-year-old white male, chronic fpc confinement on chronic dialysis in [place]. I see him on a monthly basis in [place]. He was last seen by me approximately 10 days ago and was stable in the dialysis unit. He was admitted through the Emergency Room with progressive shortness of breath and obvious volume overload, and admitted for the above. HOSPITAL COURSE: The patient underwent emergent dialysis and control of his blood pressure and his symptoms rapidly abated. He did have some alteration in his medication regime specifically related to his vasodilator therapy, but was otherwise back to baseline at the time of discharge. He will be discharged on more intensive medical therapy and resume dialysis in [place]. DISCHARGE DIAGNOSES: 1. Acute biventricular congestive heart failure, now resolved. 2. End-stage renal disease. 3. Chronic dementia. 4. Erythropoietin-dependent anemia. 5. History of hypertension. 6. History of coronary artery disease. PLAN: The patient will be discharged today after dialysis. He will resume dialysis in [place] on a Saturday, Saturday and Saturday basis. He will continue his renal diet. DISCHARGE MEDICATIONS: His discharge medications will be Nephro-Felecia 1 daily, hydralazine 10 mg b.i.d., metoprolol 100 mg on 4 times weekly basis. He will be on Isordil 20 mg on 4 times weekly basis, Synthroid 75 mcg daily, amlodipine 10 at bedtime, atorvastatin 20 at bedtime, Colace at bedtime, Ativan 0.5 at bedtime, and he will have Pepcid 20 mg b.i.d., Meloxicam every other day 7.5 mg, clonidine patch p.r.n., Renagel 800 t.i.d. TRANSINT:[id number] Voice Confirmation ID: [id number] DOCUMENT ID: [id number] TEY FLANNERY MD at 0736 CC: [id number] DICTATION DATE: 02/25/19 0627 SADDLE LINING STITCHER: 02/25/19 0705 [facility] [place] [address] [place] [address]
[2019-02-26 08:03] VITALS: BP 133/64
--- NOTE | 2019-02-26 08:41 | MORECARE ---
CASE MANAGEMENT DISCHARGE SUMMARY PATIENT: BRITTON HEATH UNIT: [id number] ADM DATE: 02/22/19 AGE: 83 : 36 SEX: M ROOM/BED: D.2128 AUTHOR: HAYDEE PEOPLES PHYSICIAN: REFERRING PHYSICIAN: MICHELLE KEITH MD DATE OF SERVICE: 02/26/19 Discharge Plan Patient Name: BRITTON HEATH Facility: [facility]:[place] : 1935 Planned Disposition: Nursing Facility [facility] Cert Anticipated Discharge Date: 02/26/19 Discharge Date: Expected LOS: 4 Initial Reviewer: [id number] Initial Review Date: 02/24/2019 Generated: 02/26/19 9:41 am Comments DCP- Discharge Planning Updated by [email or web address]: Oswaldo Chong on 02/25/19 7:[address] Patient Name: BRITTON HEATH Encounter No: [id number] : 1935 Primary Insurance: MEDICARE A & B Anticipated DC Date: 02-25-2019 Planned Disposition: Nursing Facility [facility] Cert External Planned Provider: [facility], LONG TERM CARE MEDICAID BED DCP follow-up note: CM RECEIVED DISCHARGE ORDERS, CALLED UNIQUE HEATH, SON, , LEFT MESSAGE REGARDING DISCHARGE TODAY WITH CM CALL BACK NUMBER FOR CONCERNS OR QUESTIONS. CM NOTIFIED SHAHANA OF [facility] OF DISCHARGE AFTER DAILYSIS TODAY AND NEED FOR OXYGEN DURING TRANSPORT. CM FAXED DISCHARGE INFORMATION TO [facility] [employer]IA [employer] AT [phone]. NURSE REPORT TO BE CALLED TO [facility] AT [phone]. [facility] TO ARRANGE VAN TRANSPORTATION. Rotary Cutter Feeder: Oswaldo Chong DCP- Discharge Planning Updated by [id number]: Oswaldo Chong on 02/24/19 2:[address] Patient Name: BRITTON HEATH Admission Status: ER Accout number: [id number] Admission Date: 02-22-2019 : 1935 Admission Diagnosis:HYPERKALEMIA Attending: Michelle Keith Current LOS: 2 Anticipated DC Date: 02-25-2019 Planned Disposition: Nursing Facility [facility] Cert Primary Insurance: MEDICARE A & B PLANNED EXTERNAL PROVIDER: [facility], [facility] CARE MEDICAID BED Discharge Planning Comments: CM RECEIVED DISCHARGE PLANNING ORDER, MET WITH PT IN ROOM TO DISCUSS DISCHARGE PLANNING AND NEEDS. PT STILL LIVES AT [facility], REPORTS FEELING SAFE AND WILL RETURN THERE TOMORROW AT DISCHARGE. CHOICE SIGNED FOR [facility]. PT REPORTS HE STILL GOES TO DIALYSIS AT [place] ON MWF 0645AM SCHEDULE, [facility] ARRANGES TRANSPORT FOR HIM. PT REPORTS HE WILL NEED [facility] TO PICK HIM UP TOMORROW AFTER DIALYSIS HERE. IMPORTANT MESSAGE FROM MEDICARE PROVIDED AND EXPLAINED. CM NOTIFIED SHAHANA SANTIAGO, CLINICAL LIAISON FOR [facility], , NOTIFIED OF PLANNED DISCHARGE AFTER DIALYSIS TOMORROW. CM FAXED UPDATE TO [facility] AT [phone]. [facility] TO ACCEPT BACK FOR CONTINUED [facility] CARE. FOR DISCHARGE, FAX DISCHARGE INFORMATION TO [facility] AT [phone]. NURSE REPORT TO BE CALLED TO [facility] AT [phone]. [facility] TO ARRANGE VAN TRANSPORTATION. Rotary Cutter Feeder: Oswaldo Chong DCPIA - Discharge Planning Initial Assessment Updated by [id number]: Oswaldo Chong on 02/24/19 3:12 pm * Is the patient Alert and Oriented? Yes * How many steps to enter\exit or inside your home? NONE * PCP DR. COULTER * Pharmacy [facility] * Preadmission Environment Nursing Home Acute Care Facility * Facility Name [facility] * ADLs Partial Dependent * Partial ADLs (Assistance needed) Ambulation Bathing Medication Management * Equipment Other * Other Equipment ALL MEDICAL EQUIPMENT PROVIDED BY FACILITY * List name and contact numbers for known caregivers / representatives who currently or will assist patient after discharge: UNIQUE HEATH, SON, * Verbal permission to speak to the caregivers and representatives has been obtained from the patient. N/A * Community resources currently utilized Other * Please name any agencies selected above. OUTPATIENT DIALYSIS, MWF, 0645, MEDICAID TRANSPORT [facility]ANGED [facility]. * Additional services required to return to the preadmission environment? No * Can the patient safely return to the preadmission environment? Yes * Has this patient been hospitalized within the prior 30 days at any hospital? No Coverage Notice Reviewer: [id number] - Oswaldo Chong Notice Issued Date-Time: 02/24/2019 14:50 Notice Type: IM Discharge Notice Notice Delivered To: Patient Relationship to Patient: Belt Lacer Name: Delivery Method: HAND - Hand Delivered Chelsy Days: Prior Verbal Notification: Recipient Understood Notice: Yes Recipient Signature: Yes Med Rec Note Co-signed by Attending: Coverage Notice Comment: Reviewer: [id number] Isadora Chong Notice Issued Date-Time: 02/24/2019 14:50 Notice Type: Patient Choice Letter Notice Delivered To: Patient Relationship to Patient: Belt Lacer Name: Delivery Method: HAND - Hand Delivered Chelsy Days: Prior Verbal Notification: Recipient Understood Notice: Yes Recipient Signature: Yes Med Rec Note Co-signed by Attending: Coverage Notice Comment: BARBIE Duran DP export: 02/25/19 7:54 a Patient Name: BRITTON HEATH Page 60566 at 0841 All edits/amendments must be made on the electronic document DICTATION DATE: 02/26/19840 BLOWER AND COMPRESSOR ASSEMBLER: MAXIMINO 02/26/19840 RPT#: [id number] DC DATE: STATUS: ADM IN [facility] [address] [place] [address] END OF REPORT
--- NOTE | 2019-02-26 08:41 | NUR ---
ALERT BUT WITH PERIODS OF CONFUSION, UP WITH ASSIST. LEFT AVF. PT IS HARD OF HEARING. HE IS BLIND IN RIGHT EYE. O2 AT 2 L/M PER NC. RIGHT AC SL. NO NEEDS VOICED. SR UP WITH CALL LIGHT IN REACH. BED ALARM ON
--- NOTE | 2019-02-26 10:35 | NUR ---
PT DISCHARGED. IV DCD WITH TIP INTACT. REPORT CALLED TO BARBIE JACOBS.
--- NOTE | 2019-02-26 11:12 | NUR ---
PT LEFT PER WHEELCHAIR TO [place] [facility]
== END 2019-02-26 11:26 | DRG 291 ==
LOC: D.ER 20:23 → D.M2 22:24
PROVIDERS: Emergency Medicine; Internal Medicine Nephrology; ADMIT Internal Medicine Nephrology; ATTEND Internal Medicine Nephrology
PROC: 5A1D70Z Performance of Urinary Filtration, Intermittent, Less than 6 Hours Per Day (ICD-10-PCS; principal; 2019-02-23)
DX: I13.2 Hypertensive heart and chronic kidney disease with heart failure and with stage 5 chronic kidney disease, or end stage renal disease (principal); N18.6 End stage renal disease; E87.5 Hyperkalemia; I50.9 Heart failure, unspecified; Z99.2 Dependence on renal dialysis; D63.1 Anemia in chronic kidney disease; F03.90 Unspecified dementia, unspecified severity, without behavioral disturbance, psychotic disturbance, mood disturbance, and anxiety; E83.39 Other disorders of phosphorus metabolism; I48.91 Unspecified atrial fibrillation; I25.10 Atherosclerotic heart disease of native coronary artery without angina pectoris

== ENCOUNTER 2020-06-12 12:46 | Emergency (ER) | payer MEDICARE ==
[~2020-06-12] VITALS: Ht 177.8 cm; Wt 68.2 kg
[~2020-06-12 12:46] MED LIST changes: +ALBUTEROL SULF8.5 GM INH; +COLACE100 MG; +LOPERAMIDE HCL2 MG PO; +RENVELA800 MG PO
[2020-06-12 12:49] VITALS: Ht 177.8 cm; Wt 68.2 kg
[2020-06-12 13:27] LABS: BASOPHILS 0.1 % (0-2); EOSINOPHILS 2.3 % (0-7); HEMATOCRIT 37.3 % (42.0-54.0); HEMOGLOBIN 11.8 g/dL (13.5-17.5); IMMATURE GRANULOCYTES 0.1 % (0-5); LYMPHOCYTE ABS# 1.07 10x3/uL (1.32-3.57); LYMPHOCYTES 14.5 % (15-50); MCH 30.5 pg (26.0-34.0); MCHC 31.6 g/dL (31.0-37.0); MCV 96.4 fL (80.0-100.0); MEAN PLATELET VOLUME 12.1 fL (7.4-10.4); MONOCYTES 17.9 % (2-11); NEUTROPHIL ABS# 4.79 10x3/uL (1.78-5.38); NEUTROPHILS 65.1 % (40-80); PLATELET COUNT 192 10x3/uL (130-400); RBC 3.87 10x6/uL (4.20-6.10); RDW 16.4 % (11.5-14.5); WBC 7.4 10x3/uL (4.8-10.8)
[2020-06-12 13:40] LABS: APTT 29.7 SECONDS (22.8-39.4); INR 1.18 (0.85-1.17); PROTIME 13.9 SECONDS (11.6-15.0)
[2020-06-12 14:01] LABS: ALBUMIN 3.4 g/dL (3.4-5.0); ALKALINE PHOSPHATASE 108 U/L (30-120); ALT (SGPT) 34 U/L (10-68); BILIRUBIN - TOTAL 0.27 mg/dL (0.2-1.3); CALCIUM 9.2 mg/dL (8.5-10.1); CARBON DIOXIDE 26.6 mmol/L (21.0-32.0); CHLORIDE - SERUM 103 mmol/L (98-107); CKMB 1.1 U/L (0.0-3.6); CREATINE KINASE 44 UL (21-232); CREATININE - SERUM 8.6 mg/dL (0.6-1.3); GLUCOSE 105 mg/dL (74-106); POTASSIUM - SERUM 5.1 mmol/L (3.5-5.1); PROTEIN - SERUM 7.6 g/dL (6.4-8.2); SODIUM 141 mmol/L (136-145); TROPONIN-I 0.034 ng/mL (0.000-0.060); eGFR NON AFRICAN AMERICAN 6 mL/min (90-120)
[2020-06-12 14:03] LABS: CALC OSMOLALITY 311 mosm/kg (275-300); UREA NITROGEN 100 mg/dL (7-18)
[2020-06-12 16:24] VITALS: BP 158/84
== END 2020-06-12 16:15 ==
LOC: D.ER 12:46
PROVIDERS: Family Medicine
DX: R07.89 Other chest pain (principal); M79.10 Myalgia, unspecified site; R07.81 Pleurodynia; R10.9 Unspecified abdominal pain; W19.XXXA Unspecified fall, initial encounter; Y93.9 Activity, unspecified; Y92.129 Unspecified place in nursing home as the place of occurrence of the external cause; I12.0 Hypertensive chronic kidney disease with stage 5 chronic kidney disease or end stage renal disease; I50.9 Heart failure, unspecified; K21.9 Gastro-esophageal reflux disease without esophagitis; J44.9 Chronic obstructive pulmonary disease, unspecified